=== PATIENT | female | born 1960 | race Hispanic/Latino ===

== ENCOUNTER 2017-03-19 00:55 | Inpatient (IN) | payer OTHER ==
[2017-03-19] MEDS ORDERED: Piperacill/Tazo 4.5gm in NS 4.5 GM/100 ML BAG IVPB STA (01:22)
[2017-03-19] MEDS ORDERED: levoFLOXacin 750 mg in D5W 750 MG/150 ML BAG IVPB STA (01:22)
--- NOTE | 2017-03-19 01:23 | ED PDOC ---
Arrival/HPI - General Chief Complaint: Upper Extremity Problem/Injury Time Seen by Provider: 03/19/17 00:58 Historian: Patient - History of Present Illness Narrative History of Present Illness (Text): 03/19/17 01:21 Micaela Rios is a 57 year old female, whose past medical history includes multiple sclerosis, hypertension, and asthma, who presents to the Emergency department complaining of left shoulder pain. Patient states she has been experiencing left shoulder pain worsened with moving. Patient also reports associated chest pain for the past few hours. Patient also complaining of a persistent cough for the past 2 weeks. Patient states she was seen by her PMD for similar complaint and placed on Levaquin. Patient states she had Tylenol 1 hour prior to arrival. Patient denies any fever, chills, nausea, vomiting, diarrhea, urinary symptoms, neck pain, headache, dizziness, or any other complaints. Symptom Onset: Gradual Symptom Course: Unchanged Activities at Onset: Rest, Light Context: Home Past Medical History - Provider Review Nursing Documentation Reviewed: Yes - Reproductive Menopause: Yes - Cardiac Hx Cardiac Disorders: Yes Hx Hypertension: Yes - Pulmonary Hx Respiratory Disorders: Yes Hx Asthma: Yes - Neurological Hx Neurological Disorder: Yes Hx Multiple Sclerosis: Yes Hx Seizures: Yes - HEENT Hx HEENT Disorder: No - Renal Hx Renal Disorder: No - Endocrine/Metabolic Hx Endocrine Disorders: No - Hematological/Oncological Hx Blood Disorders: No - Integumentary Hx Dermatological Disorder: No - Musculoskeletal/Rheumatological Hx Musculoskeletal Disorders: Yes Hx Arthritis: Yes Hx Back Pain: Yes Hx Osteoarthritis: Yes - Gastrointestinal Hx Gastrointestinal Disorders: No - Genitourinary/Gynecological Hx Genitourinary Disorders: No - Psychiatric Hx Psychophysiologic Disorder: No Hx Substance Use: No - Surgical History Other/Comment: Cervical spine surgery Family/Social History - Physician Review Nursing Documentation Reviewed: Yes Family/Social History: No Known Family HX Smoking Status: Never Smoked Hx Alcohol Use: No Hx Substance Use: No Allergies/Home Meds Allergies/Adverse Reactions: Allergies No Known Allergies Allergy (Verified 03/19/17 01:01) Home Medications: Home Meds Medication Instructions Recorded Confirmed Albuterol Sulfate [Proair Hfa] 2 puff IH BID PRN 03/19/17 03/19/17 Carvedilol [Coreg] 12.5 mg PO BID 03/19/17 03/19/17 Cholecalciferol (Vitamin D3) 50,000 unit PO QWK 03/19/17 03/19/17 [Vitamin D3] Desloratadine [Clarinex] 5 mg PO DAILY 03/19/17 03/19/17 Diltiazem HCl [Diltiazem ER] 240 mg PO HS 03/19/17 03/19/17 Formoterol Fumarate [Foradil 0.012 mg IH BID 03/19/17 03/19/17 Aerolizer] Furosemide [Lasix] 20 mg PO DAILY 03/19/17 03/19/17 Gabapentin [Neurontin] 600 mg PO BID 03/19/17 03/19/17 Hydroxychloroquine Sulfate 200 mg PO BID 03/19/17 03/19/17 [Plaquenil] Lacosamide [Vimpat] 200 mg PO BID 03/19/17 03/19/17 Mometasone Furoate [Asmanex Hfa] 2 puff IH HS 03/19/17 03/19/17 Montelukast [Singulair] 10 mg PO DAILY 03/19/17 03/19/17 Omeprazole 20 mg PO DAILY PRN 03/19/17 03/19/17 Potassium Chloride [Klor-Con 10] 10 meq PO DAILY 03/19/17 03/19/17 Pravastatin Sodium [Pravachol] 20 mg PO DAILY 03/19/17 03/19/17 Valsartan [Diovan] 320 mg PO DAILY 03/19/17 03/19/17 cloNIDine [clonidine HCl] 0.1 mg PO BID 03/19/17 03/19/17 l-Mefol/A-Cyst/Meb12/Algal Oil 1 tab PO DAILY 03/19/17 03/19/17 [Cerefolinnac] Review of Systems - Physician Review All systems were reviewed & negative as marked: Yes - Review of Systems Constitutional: Normal. absent: Fevers Eyes: Normal ENT: Normal Respiratory: Cough. absent: SOB Cardiovascular: Chest Pain Gastrointestinal: Normal. absent: Abdominal Pain, Diarrhea, Nausea, Vomiting Genitourinary Female: Normal. absent: Dysuria, Frequency, Hematuria, Urine Output Changes Musculoskeletal: Arthralgias (+left shoulder pain). absent: Neck Pain Skin: Normal. absent: Rash Neurological: Normal. absent: Headache, Dizziness Endocrine: Normal Hemo/Lymphatic: Normal Psychiatric: Normal Physical Exam Vital Signs Reviewed: Yes Vital Signs Temp Pulse Resp BP Pulse Ox 03/19/17 03:36 103 H 16 136/73 100 03/19/17 03:27 111 H 19 142/67 95 03/19/17 03:15 114 H 19 142/81 95 03/19/17 03:00 114 H 19 142/67 94 L 03/19/17 02:47 111 H 16 148/74 100 03/19/17 02:30 103.5 F H 114 H 18 133/83 97 03/19/17 02:29 103.5 F H 03/19/17 02:20 71 18 180/77 H 99 03/19/17 02:05 72 20 176/78 H 99 03/19/17 01:52 114 H 20 112/94 H 100 03/19/17 01:35 72 16 175/79 H 100 03/19/17 01:30 113 H 20 146/92 H 99 03/19/17 01:29 104.3 F H 03/19/17 01:25 123/88 03/19/17 01:13 104.3 F H 116 H 20 128/111 H 97 Temperature: Febrile Blood Pressure: Normal Pulse: Regular Respiratory Rate: Normal Appearance: Positive for: Well-Appearing, Non-Toxic, Comfortable Pain Distress: None Mental Status: Positive for: Alert and Oriented X 3 - Systems Exam Head: Present: Atraumatic, Normocephalic Pupils: Present: PERRL Extroacular Muscles: Present: EOMI Conjunctiva: Present: Normal Mouth: Present: Moist Mucous Membranes Neck: Present: Normal Range of Motion Respiratory/Chest: Present: Rhonchi. No: Respiratory Distress, Accessory Muscle Use Cardiovascular: Present: Regular Rate and Rhythm, Normal S1, S2. No: Murmurs Abdomen: Present: Normal Bowel Sounds. No: Tenderness, Distention, Peritoneal Signs Upper Extremity: Present: Normal Inspection. No: Cyanosis, Edema Lower Extremity: Present: Normal Inspection. No: Edema Neurological: Present: GCS=15, CN II-XII Intact, Speech Normal Skin: Present: Warm, Dry, Normal Color. No: Rashes Psychiatric: Present: Alert, Oriented x 3, Normal Insight, Normal Concentration Medical Decision Making ED Course and Treatment: 03/19/17 01:21 Impression: 57 year old female complaining of left shoulder pain, chest pain and cough. Plan: -- EKG -- Chest X-ray -- Labs, VBG, blood cultures -- Urinalysis, urine cultures -- Levaquin -- Zosyn -- IV fluids -- Motrin -- Reassess and disposition Prior Visits: Notes and results from previous visits were reviewed. Progress Notes: Reviewed EKG, sinus tachycardia at 115 bpm. Non-specific ST/T wave changes. 03/19/17 02:20 Reviewed radiology, Chest X-ray shows no pneumonia. 03/19/17 03:[address] Post, covering for Dr. Ortiz, who is aware and agrees with plan. Pt will be admitted to Telemetry for chest pain and sepsis. 03/19/17 03:24 Case discussed with curator medical museum database consultant, who is aware and agrees with plan. - Lab Interpretations Microbiology Results: Microbiology Results 03/19/17 01:50 Blood Blood Culture - Preliminary NO GROWTH AFTER 48 HOURS 03/19/17 01:20 Blood Blood Culture - Preliminary NO GROWTH AFTER 48 HOURS 03/19/17 01:20 Urine,Clean Catch Urine Culture - Final No Growth (<1,000 CFU/ML) Lab Results: 03/19/17 01:20 03/19/17 01:20 Lab Results 03/19/17 01:20: Procalcitonin < 0.05 L 03/19/17 01:20: Sodium 140, Chloride 100, Potassium 3.9, Carbon Dioxide 27, Anion Gap 17, BUN 20, Creatinine 0.7, Est GFR ( Amer) > 60, Est GFR (Non- Af Amer) > 60, Random Glucose 96, Calcium 10.5, Phosphorus 2.2 L, Magnesium 1.6 L, Total Bilirubin 0.5, AST 34, ALT 55, Alkaline Phosphatase 156 H, Total Protein 8.0, Albumin 4.7, Globulin 3.3, Albumin/Globulin Ratio 1.4 03/19/17 01:20: pO2 29 L, VBG pH 7.36, VBG pCO2 49.0, VBG HCO3 27.7, VBG Total CO2 29.2 H, VBG O2 Sat (Calc) 59.3, VBG Base Excess 1.5, VBG Potassium 4.1, Sodium 138.0, Chloride 107.0, Glucose 94, Lactate 1.8, FiO2 21.0, Venous Blood Potassium 4.1 03/19/17 01:20: Urine Color Yellow, Urine Appearance Sl cloudy, Urine pH 7.0, Ur Specific [place] 1.015, Urine Protein Trace H, Urine Glucose (UA) Negative, Urine Ketones Negative, Urine Blood Small H, Urine Nitrate Negative, Urine Bilirubin Negative, Urine Urobilinogen 0.2, Ur Leukocyte Esterase Negative, Urine RBC 2 - 5, Urine WBC 0 - 2, Ur Epithelial Cells 0 - 2 03/19/17 01:20: PT 10.5, INR 0.97, APTT 24.3 03/19/17 01:20: WBC 17.1 H, RBC 4.81, Hgb 13.1, Hct 39.0, MCV 81.1, MCH 27.2, MCHC 33.6, RDW 14.6 H, Plt Count 323, MPV 9.4, Gran % 74.6 H, Lymph % (Auto) 15.4 L, [place] % (Auto) 8.5 H, Eos % (Auto) 1.3 L, Baso % (Auto) 0.2, Gran # 12.76 H, Lymph # 2.6, [place] # 1.5 H, Eos # 0.2, Baso # 0.04 I have reviewed the lab results: Yes - RAD Interpretation Radiology Orders: 03/19/17 01:22 CHEST PORTABLE [RAD] Stat - EKG Interpretation Interpreted by ED Physician: Yes Type: 12 lead EKG - Medication Orders Current Medication Orders: Acetaminophen (Tylenol 325mg Tab) 650 mg PO Q4 PRN PRN Reason: Fever >100.4 F Last Admin: 03/21/17 01:05 Dose: 650 mg Re-Assess: MAR Pain/Vitals Document 03/21/17 02:05 MB (Rec: 03/21/17 02:33 [id number]) Pain Reassessment Is This A Pain ReAssessment? Yes Sleep Is patient sleeping during reassessment? Yes Albuterol/Ipratropium (Duoneb 3 Mg/0.5 Mg (3 Ml) Ud) 3 ml IH [id number] [facility] Last Admin: 03/21/17 07:22 Dose: 3 ml Albuterol/Ipratropium (Duoneb 3 Mg/0.5 Mg (3 Ml) Ud) 3 ml IH Q2H PRN PRN Reason: Shortness of Breath Last Admin: 03/20/17 23:30 Dose: 3 ml Aspirin (Aspirin Chewable) 81 mg PO DAILY [facility] Last Admin: 03/20/17 10:31 Dose: 81 mg Atorvastatin Calcium (Lipitor) 20 mg PO DIN [facility] Last Admin: 03/20/17 17:35 Dose: 20 mg Budesonide (Pulmicort Respules) 0.5 mg IH [id number] [facility] Last Admin: 03/21/17 07:22 Dose: 0.5 mg Carvedilol (Coreg) 12.5 mg PO BID [facility] Clonidine HCl (Catapres) 0.3 mg PO BID [facility] Last Admin: 03/19/17 12:26 Dose: Doxycycline Hyclate (Doryx) 100 mg PO Q12 [facility] PRN Reason: Protocol Last Admin: 03/20/17 21:47 Dose: 100 mg Ergocalciferol (Drisdol 50,000 Intl Units Cap) 1 cap PO Q7D [facility] Last Admin: 03/19/17 11:31 Dose: 1 cap Famotidine (Pepcid) 40 mg PO HS [facility] Last Admin: 03/20/17 21:47 Dose: 40 mg Furosemide (Lasix) 20 mg PO DAILY [facility] Last Admin: 03/19/17 11:53 Dose: Gabapentin (Neurontin) 600 mg PO BID [facility] PRN Reason: Protocol Last Admin: 03/20/17 17:34 Dose: 600 mg Re-Assess: Reassess Psych Meds Document 03/20/17 18:34 MB (Rec: 03/20/17 19:42 MB [id number]) Reassess Psych Med Effective Guaifenesin (Robitussin) 100 mg PO Q4H PRN PRN Reason: Cough Last Admin: 03/19/17 23:42 Dose: 100 mg Heparin Sodium (Porcine) (Heparin) 5,000 units SC Q12 [facility] PRN Reason: Protocol Last Admin: 03/20/17 21:47 Dose: 5,000 units Hydroxychloroquine Sulfate (Plaquenil) 200 mg PO BID [facility] Last Admin: 03/20/17 17:34 Dose: 200 mg Piperacillin Sod/Tazobactam Sod (Zosyn 3.375 In Ns 100ml) 100 mls @ 200 mls/hr IVPB 0900,1500,2100,0300 [facility] PRN Reason: Protocol Stop: 03/26/17 15:01 Last Admin: 03/21/17 05:42 Dose: Not Given Non-Admin Reason: Patient Refused Methylprednisolone (Solu-Medrol) 30 mg IVP Q12 [facility] Last Admin: 03/20/17 21:45 Dose: 30 mg Montelukast Sodium (Singulair) 10 mg PO DAILY [facility] Last Admin: 03/20/17 10:31 Dose: 10 mg Morphine Sulfate (Morphine) 2 mg IVP Q4H PRN PRN Reason: Pain, moderate (4-7) Lacosamide [Vimpat] (200 Mg) 200 mg PO BID [facility] Last Admin: 03/20/17 17:33 Dose: 200 mg Ondansetron HCl (Zofran Inj) 4 mg IVP Q4H PRN PRN Reason: Nausea/Vomiting Valsartan (Diovan) 320 mg PO DAILY [facility] Last Admin: 03/19/17 12:27 Dose: Not Given Non-Admin Reason: Patient Lethargic Discontinued Medications Barium Sulfate (Readi-Cat 2) Confirm Administered Dose 900 ml PO .STK-MED ONE Stop: 03/19/17 13:12 Hydromorphone HCl (Dilaudid) 1 mg IVP STAT STA Stop: 03/19/17 03:44 Last Admin: 03/19/17 03:52 Dose: Not Given Non-Admin Reason: Patient Asleep Levofloxacin/Dextrose (Levaquin 750mg) 750 mg in 150 mls @ 100 mls/hr IVPB STAT STA Stop: 03/19/17 02:51 Last Admin: 03/19/17 02:04 Dose: 100 mls/hr Sodium Chloride (Sodium Chloride 0.9%) 1,000 mls @ 80 mls/hr IV .[id number] [facility] Last Admin: 03/19/17 01:34 Dose: 80 mls/hr Piperacillin Sod/Tazobactam Sod (Zosyn 4.5 Gm In Ns 100ml) 4.5 gm in 100 mls @ 200 mls/hr IVPB STAT [facility] PRN Reason: Protocol Stop: 03/19/17 01:51 Last Admin: 03/19/17 01:42 Dose: 200 mls/hr Magnesium Sulfate/Dextrose (Magnesium Sulfate 1 Gm/100 Ml D5w) 1 gm in 100 mls @ 100 mls/hr IVPB ONCE ONE Stop: 03/19/17 05:52 Last Admin: 03/19/17 05:14 Dose: 100 mls/hr Meropenem 500 mg/ Sodium (Chloride) 100 mls @ 100 mls/hr IVPB Q24H [facility] PRN Reason: Protocol Stop: 03/19/17 05:59 Last Admin: 03/19/17 06:04 Dose: 100 mls/hr Vancomycin HCl (Vancomycin 1gm) 1 gm in 250 mls @ 167 mls/hr IVPB DAILY [facility] PRN Reason: Protocol Sodium Chloride (Sodium Chloride 0.9%) 1,000 mls @ 100 mls/hr IV .Q10H [facility] Last Admin: 03/20/17 01:03 Dose: 100 mls/hr Comments: margaret mena-scanner not working Piperacillin Sod/Tazobactam Sod (Zosyn 3.375 In Ns 100ml) 100 mls @ 200 mls/hr IVPB Q6 [facility] PRN Reason: Protocol Stop: 03/26/17 12:01 Piperacillin Sod/Tazobactam Sod (Zosyn 3.375 In Ns 100ml) 100 mls @ 200 mls/hr IVPB STAT [facility] PRN Reason: Protocol Stop: 03/19/17 09:04 Last Admin: 03/19/17 08:58 Dose: 200 mls/hr Sodium Chloride (Sodium Chloride 0.9%) 1,000 mls @ 999 mls/hr IV .Q1H1M ST[facility] Stop: 03/19/17 10:49 Last Admin: 03/19/17 09:45 Dose: 999 mls/hr Sodium Chloride (Sodium Chloride 0.9%) 1,000 mls @ 999 mls/hr IV .Q1H1M [facility] Stop: 03/19/17 11:16 Last Admin: 03/19/17 19:59 Dose: Sodium Chloride (Sodium Chloride 0.9%) 1,000 mls @ 999 mls/hr IV .Q1H1M [facility] Stop: 03/19/17 12:18 Last Admin: 03/19/17 11:55 Dose: 999 mls/hr Ibuprofen (Motrin Tab) 400 mg PO ONCE [facility] Stop: 03/19/17 01:25 Last Admin: 03/19/17 01:29 Dose: 400 mg Re-Assess: MAR Pain/Vitals Document 03/19/17 02:29 MMA (Rec: 03/19/17 03:42 [facility] [id number]) Vitals Temperature (97.6 F-99.6 F) 103.5 F Temperature Source Rectal Ibuprofen (Motrin Tab) Confirm Administered Dose 400 mg PO .STK-MED ONE Stop: 03/19/17 01:29 Last Admin: 03/19/17 01:29 Dose: Methylprednisolone (Solu-Medrol) 40 mg IVP Q8 [facility] Last Admin: 03/19/17 08:59 Dose: 40 mg Morphine Sulfate (Morphine) 1 mg IVP STAT ST[facility] Stop: 03/19/17 02:50 Last Admin: 03/19/17 03:40 Dose: 1 mg Non-Formulary Medication (Lacosamide [Vimpat]) 200 mg PO BID [facility] Last Admin: 03/19/17 11:53 Dose: Potassium Phos/Sodium Phos (Neutra-Phos) 1 pkt PO ONCE ONE Stop: 03/19/17 04:54 Last Admin: 03/19/17 05:14 Dose: 1 pkt - Scribe Statement The provider has reviewed the documentation as recorded by the Scribdorene Damian All medical record entries made by the Leeibdorene were at my direction and personally dictated by me. I have reviewed the chart and agree that the record accurately reflects my personal performance of the history, physical exam, medical decision making, and the department course for this patient. I have also personally directed, reviewed, and agree with the discharge instructions and disposition. Disposition/Present on Arrival - Present on Arrival Any Indicators Present on Arrival: No History of DVT/PE: No History of Uncontrolled Diabetes: No Urinary Catheter: No History of Decub. Ulcer: No History Surgical Site Infection Following: None - Disposition Have Diagnosis and Disposition been Completed?: Yes Diagnosis: Pneumonia Disposition: HOSPITALIZED Disposition Time: 03:25 Condition: GOOD
[2017-03-19] MEDS ORDERED: Sodium Chloride 0.9% 1,000 ML IV SCH (01:30)
[2017-03-19 02:06] LABS: ADD MANUAL DIFF? NO
[2017-03-19 02:17] LABS: URINE BILIRUBIN NEGATIVE (NEGATIVE); URINE BLOOD SMALL (NEGATIVE); URINE GLUCOSE (UA) NEGATIVE (NEGATIVE); URINE KETONE NEGATIVE (NEGATIVE); URINE LEUKOCYTE ESTERASE NEGATIVE Leu/uL (NEGATIVE); URINE PROTEIN TRACE mg/dL (<30 mg/dL); URINE UROBILINOGEN 0.2 E.U./dL (<1 E.U./dL)
[2017-03-19 02:18] LABS: BASO # 0.04 K/mm3 (0.0-2.0); BASO % 0.2 % (0.0-3.0); EOS # 0.2 (0.0-0.7); EOS % 1.3 % (1.5-5.0); GRAN # 12.76 (1.4-6.5); GRAN % 74.6 % (50.0-68.0); LYMPH # 2.6 (1.2-3.4); LYMPH % 15.4 % (22.0-35.0); MEAN CELL VOLUME 81.1 fL (80.0-105.0); MEAN CORPUSCULAR HEMOGLOBIN 27.2 pg (25.0-35.0); MEAN CORPUSCULAR HGB CONC 33.6 g/dl (31.0-37.0); MEAN PLATELET VOLUME 9.4 fl (7.0-11.0); MONO # 1.5 (0.1-0.6); MONO % 8.5 % (1.0-6.0); PLATELET COUNT 323 10^3/uL (120.0-450.0); RED CELL DISTRIBUTION WIDTH 14.6 % (11.5-14.5); WHITE BLOOD COUNT 17.1 10^3/ul (4.5-11.0)
[2017-03-19 02:23] LABS: INR 0.97 (0.93-1.08); PARTIAL THROMBOPLASTIN TIME 24.3 Seconds (23.7-30.8)
[2017-03-19 02:24] LABS: URINE APPEARANCE SL CLOUDY (CLEAR); URINE COLOR YELLOW (YELLOW); VENOUS BLOOD GAS BASE EXCESS 1.5 mmol/L (0.0-2.0); VENOUS BLOOD PH 7.36 (7.32-7.43)
[2017-03-19 02:28] LABS: URINE EPITHELIAL CELLS 0 - 2 /hpf (0-5); URINE WBC 0 - 2 /hpf (0-6)
[2017-03-19 02:48] LABS: ALB/GLOB RATIO 1.4 (1.1-1.8); ALKALINE PHOSPHATASE 156 U/L (38-133); ALT/SGPT 55 U/L (7-56); AST/SGOT 34 U/L (15-39); BILIRUBIN,TOTAL 0.5 mg/dL (0.2-1.3); BLOOD UREA NITROGEN 20 mg/dL (7-21); CALCIUM 10.5 mg/dL (8.4-10.5); CARBON DIOXIDE 27 mmol/L (21-33); CHLORIDE 100 mmol/L (95-110); GFR AFRICAN-AMERICAN > 60; GLUCOSE,RANDOM 96 mg/dL (70-110); MAGNESIUM 1.6 mg/dL (1.7-2.2); PHOSPHOROUS 2.2 mg/dL (2.5-4.5); POTASSIUM 3.9 mmol/L (3.6-5.0); SODIUM 140 mmol/L (132-148)
[2017-03-19] MEDS ORDERED: Morphine 2 mg/ml ISec IVP STA (02:49)
[2017-03-19] MEDS ORDERED: HYDROmorphone 1 mg/ml ISec IVP STA (03:43)
[2017-03-19] MEDS ORDERED: Morphine 2 mg/ml ISec IVP PRN (03:55)
--- NOTE | 2017-03-19 04:24 | CP.PCM.HP ---
<YuridevonedieDavin carlson - Last Filed: 03/19/17 05:03> History of Present Illness - History of Present Illness History of Present Illness: 57 y/o F with PMH of MS, HTN, HLD, and Asthma presents to the ED for a 1 day hx of chest pain. Pt states chest pain began this morning while she was at home. In addition to chest pain, she complains of concurrent left shoulder pain and mid back pain that started at the same time. Pt describes the chest pain as a pressure and rates it an 8/10. Pain has been constant since this morning. Pain is nonradiating. Pt states that left shoulder pain is not radiating from chest, but rather a separate pain on it's own. Pt states she took tylenol at home before coming to hospital. Pt denies any recent trauma or falls. Pt also mentions a persistent cough that she has had for the past several months. Over the last 2 weeks, pt states cough has become worse. Pt states cough is productive and is bringing up light/clear colored phlegm. Pt saw her PMD recently and was placed on levaquin, which did not help symptoms. Pt also mentions intermittent tingling and numbness in right arm. Pt states she believes it is her MS advancing as she had a brain MRI in 07/2016, which shows new demyelinating lesions. Pt has had these symptoms for several weeks and has not had any MS infusion treatment in over 1 month. Denies SOB, Nausea, vomiting , fevers, chills, sick contacts, syncope, visual changes, weakness, or new onset numbness/tingling. Admits to having several episodes of nonbloody diarrhea last week. PMH: MS, HTN, HLD, Asthma Surgical Hx: Unremarkable Family Hx: Maternal - DM Social Hx: Denies tobacco, alcohol, or illicit drug use Allergies: NKDA Medication: See MAR Present on Admission - Present on Admission Any Indicators Present on Admission: No Review of Systems - Constitutional Constitutional: Fatigue. absent: Chills - EENT Eyes: absent: Blurred Vision, Change in Vision, Diplopia - Cardiovascular Cardiovascular: Chest Pain. absent: Irregular Heart Rhythm - Respiratory Respiratory: Cough. absent: Dyspnea - Gastrointestinal Gastrointestinal: absent: Abdominal Pain, Diarrhea, Vomiting - Genitourinary Genitourinary: absent: Difficulty Urinating, Dysuria, Hematuria - Integumentary Integumentary: absent: New Lesions, Rash - Neurological Neurological: Numbness, Tingling. absent: Syncope - Hematologic/Lymphatic Hematologic: absent: Easy Bleeding, Easy Bruising Past Patient History - Past Social History Smoking Status: Never Smoked - CARDIAC Hx Cardiac Disorders: Yes Hx Hypertension: Yes - PULMONARY Hx Respiratory Disorders: Yes Hx Asthma: Yes - NEUROLOGICAL Hx Neurological Disorder: Yes Hx Multiple Sclerosis: Yes Hx Seizures: Yes - HEENT Hx HEENT Problems: No - RENAL Hx Chronic Kidney Disease: No - ENDOCRINE/METABOLIC Hx Endocrine Disorders: No - HEMATOLOGICAL/ONCOLOGICAL Hx Blood Disorders: No - INTEGUMENTARY Hx Dermatological Problems: No - MUSCULOSKELETAL/RHEUMATOLOGICAL Hx Musculoskeletal Disorders: Yes Hx Arthritis: Yes Hx Back Pain: Yes Hx Osteoarthritis: Yes - GASTROINTESTINAL Hx Gastrointestinal Disorders: No - GENITOURINARY/GYNECOLOGICAL Hx Genitourinary Disorders: No - PSYCHIATRIC Hx Psychophysiologic Disorder: No Hx Substance Use: No - SURGICAL HISTORY Other/Comment: Cervical spine surgery Meds Allergies/Adverse Reactions: Allergies Allergy/AdvReac Type Severity Reaction Status Date / Time No Known Allergies Allergy Verified 03/19/17 01:01 Physical Exam - Constitutional Appears: Non-toxic, No Acute Distress - Head Exam Head Exam: ATRAUMATIC, NORMAL INSPECTION, NORMOCEPHALIC - Eye Exam Eye Exam: EOMI, Normal appearance - ENT Exam ENT Exam: Mucous Membranes Moist, Normal Exam - Neck Exam Neck exam: Positive for: Normal Inspection. Negative for: Lymphadenopathy - Respiratory Exam Respiratory Exam: Clear to Auscultation Bilateral, Rhonchi (Lower left lobe), NORMAL BREATHING PATTERN. absent: Rales - Cardiovascular Exam Cardiovascular Exam: RRR, +S1, +S2 - GI/Abdominal Exam GI & Abdominal Exam: Normal Bowel Sounds, Soft. absent: Tenderness - Extremities Exam Extremities exam: Negative for: calf tenderness, pedal edema Additional comments: Left shoulder tender to palpation, no erythema or edema. - Back Exam Back exam: paraspinal tenderness, vertebral tenderness Additional comments: Tenderness to palpation along thoracic vertebrae and musculature. No erythema or edema. - Neurological Exam Neurological exam: Alert, CN II-XII Intact, Oriented x3 - Psychiatric Exam Psychiatric exam: Normal Affect, Normal Mood - Skin Skin Exam: Intact, Normal Color, Warm Results - Vital Signs Recent Vital Signs: Last Vital Signs Temp 103.5 F H 05/15/17 02:30 Pulse 103 H 03/19/17 03:36 Resp 16 03/19/17 03:36 BP 136/73 03/19/17 03:36 Pulse Ox 100 03/19/17 03:36 - Labs Result Diagrams: 03/19/17 01:20 03/19/17 01:20 Assessment & Plan - Assessment and Plan (Free Text) Plan: 57 y/o F with PMH of MS, HTN, HLD, and Asthma presents with Chest pain r/o ACS in the setting of SIRS with unclear setting of infection. Pt will be admitted to telemetry and have troponins trended. Cardiology consult, Dr. Sherman, will be placed. Pt arrived to ED with elevated temperature and WBC count. Chest x-ray appears clear, awaiting official read. Pt was empirically given Zosyn and Levaquin, along with Motrin in the ED. Will start patient on Vancomycin and Merrem and ID will be consulted, Dr. Abernathy. Pt will be admitted to telemetry for further management. 1. Chest pain Trend troponins Echocardiogram ASA 81 mg daily Morphine 2 q4h prn Consult cardiology 2. SIRS Unclear source of infection Procal pending NS @ 100 Merrem and Vancomycin Follow blood and urine cultures Consult ID 3. Multiple Sclerosis Continue home medication Monitor for worsening numbness/tingling sensations Monitor for worsening visual changes 4. HTN Continue home medication Monitor BP closely 5. Asthma Continue home medication Monitor for worsening respiratory status 6. PPX Heparin Pepcid Marry [place], PGY-1 <Jeff Ortiz - Last Filed: 04/11/17 13:53> Results - Vital Signs Recent Vital Signs: Last Vital Signs Temp 98.3 F 03/22/17 16:00 Pulse 73 03/22/17 16:00 Resp 20 03/22/17 16:00 BP 122/74 03/22/17 16:00 Pulse Ox 96 03/22/17 16:00 - Labs Result Diagrams: 03/22/17 07:00 03/22/17 07:00 Attending/Attestation - Attestation I have personally seen and examined this patient.: Yes I have fully participated in the care of the patient.: Yes I have reviewed all pertinent clinical information: Yes Notes (Text): 04/11/17 13:53 Resident note done after seen and examined by me with discussion. The note is a representation of my history, physical and plan for patient.
[2017-03-19] MEDS ORDERED: Albuterol 0.083% Inhal Sol (2.5 mg/3 mL) UD IH PRN (04:51)
[2017-03-19] MEDS ORDERED: Potassium & Sodium Phosphate PO ONE (04:53)
[2017-03-19] MEDS ORDERED: Magnesium Sulfate 1 gm in D5W 1 GM/100 ML BAG IVPB ONE (04:53)
[2017-03-19] MEDS ORDERED: Meropenem 500 MG in Sodium Chloride 0.9% 100 ML IVPB SCH (05:00)
[2017-03-19 05:41] VITALS: BMI 27.8
[2017-03-19] MEDS: Sodium Chloride 0.9% 1,000 ML IV SCH ×3 (06:04→19:45)
[2017-03-19 07:17] LABS: HEMATOCRIT 31.6 % (36.0-48.0); MEAN CELL VOLUME 80.8 fL (80.0-105.0); MEAN CORPUSCULAR HEMOGLOBIN 26.9 pg (25.0-35.0); MEAN CORPUSCULAR HGB CONC 33.2 g/dl (31.0-37.0); MEAN PLATELET VOLUME 9.2 fl (7.0-11.0); PLATELET COUNT 264 10^3/uL (120.0-450.0); RED CELL DISTRIBUTION WIDTH 14.7 % (11.5-14.5)
--- NOTE | 2017-03-19 07:22 | RAD ---
HISTORY: Sepsis Patient COMPARISON: None available. TECHNIQUE: Chest, one view. FINDINGS: Examination limited by habitus. LUNGS: Mild interstitial prominence may reflect infection or edema. No focal consolidation. Please note that chest x-ray has limited sensitivity for the detection of pulmonary masses. PLEURA: No significant pleural effusion identified. No definite pneumothorax . CARDIOVASCULAR: Cardiomegaly. OSSEOUS STRUCTURES: Cervical fusion hardware. VISUALIZED UPPER ABDOMEN: Unremarkable. OTHER FINDINGS: None. IMPRESSION: Mild interstitial prominence may reflect infection or edema. Cardiomegaly.
[2017-03-19 07:44] LABS: ADD MANUAL DIFF? NO; BASO # 0.05 K/mm3 (0.0-2.0); BASO % 0.2 % (0.0-3.0); EOS # 0.1 (0.0-0.7); EOS % 0.4 % (1.5-5.0); GRAN # 21.05 (1.4-6.5); GRAN % 81.2 % (50.0-68.0); LYMPH # 1.9 (1.2-3.4); LYMPH % 7.5 % (22.0-35.0); MONO # 2.8 (0.1-0.6); MONO % 10.7 % (1.0-6.0)
[2017-03-19 07:46] LABS: PHOSPHOROUS 2.6 mg/dL (2.5-4.5)
[2017-03-19 07:46] LABS: ALB/GLOB RATIO 1.3 (1.1-1.8); ALKALINE PHOSPHATASE 132 U/L (38-133); ALT/SGPT 148 U/L (7-56); AST/SGOT 156 U/L (15-39); BILIRUBIN,TOTAL 0.7 mg/dL (0.2-1.3); BLOOD UREA NITROGEN 20 mg/dL (7-21); CALCIUM 9.5 mg/dL (8.4-10.5); CARBON DIOXIDE 23 mmol/L (21-33); CHLORIDE 102 mmol/L (98-107); GFR AFRICAN-AMERICAN > 60; GLUCOSE,RANDOM 133 mg/dL (70-110); POTASSIUM 3.8 mmol/L (3.6-5.0); SODIUM 135 mmol/L (132-148); TOTAL PROTEIN 6.1 g/dL (5.8-8.3)
[2017-03-19 08:06] LABS: WHITE BLOOD COUNT 25.4 10^3/ul (4.5-11.0)
[2017-03-19] MEDS ORDERED: Piperacillin/Tazobact 3.375 gm 100 ML IVPB STA (08:35)
[2017-03-19] MEDS ORDERED: MethylPREDNISolone 40 mg Vial IVP SCH ×2 (08:45→10:00)
--- NOTE | 2017-03-19 09:40 | CP.PCM.CON ---
<Peña Toussaint - Last Filed: 03/19/17 09:10> History of Present Illness - History of Present Illness History of Present Illness: Neurology Consult Note - Dr. Moore Service This is a 57 y/o female with hx of MS, HTN, HLD, asthma presenting with complaints chest pain and left shoulder pain which started 1 days ago. Patient also mentions a persistent productive cough, subjective fever and chills as well as headaches. The patient also notes parasthesias to the right distal arm and medial digits. She denies any urinary complaints, abdominal pain, n/v/d or neck stiffness. Patient and her daughter note a brief period of confusion and possible mental status changes on initial hospital presentation. Patient is now at baseline according to her daughter. The patient has been treated with Tysabril however this was held 2 months ago secondary to elevated SUSHILA virus titers. MRI brain done in July, reveals progression of [employer] lesions. On admission patient is found to febrile with a temperature of 102.6. She remains febrile this morning. Leukocytosis is also noted. PMH: as above PSH: surgery to cervical spine - patient is unsure of specific procedure or level. Family hx: mother with DM Social hx: denies tobacco, alcohol or illicit drug use Allergies: NKDA Review of Systems - Constitutional Constitutional: Chills, Fever, Headache, Lethargy, Malaise - EENT Eyes: absent: Blurred Vision, Change in Vision, Diplopia, Photophobia Nose/Mouth/Throat: absent: Nasal Congestion, Nasal Discharge - Cardiovascular Cardiovascular: Chest Pain. absent: Chest Pain with Activity, Dyspnea, Palpitations, Syncope - Respiratory Respiratory: Cough, Pain on Inspiration, Chest Congestion. absent: Dyspnea, Wheezing - Gastrointestinal Gastrointestinal: absent: Abdominal Pain, Diarrhea, Nausea, Vomiting - Genitourinary Genitourinary: absent: Dysuria, Hematuria - Musculoskeletal Musculoskeletal: Arthralgias, Numbness. absent: Back Pain, Muscle Weakness, Neck Pain - Integumentary Integumentary: absent: Lesions, Pruritus - Neurological Neurological: Numbness, Headaches, Paresthesias, Weakness. absent: Abnormal Movements, Abnormal Speech, Confusion, Convulsions, Dizziness, Focal Weakness, Memory Loss - Psychiatric Psychiatric: absent: Anxiety, Depression Past Patient History - Past Social History Smoking Status: Never Smoked - CARDIAC Hx Cardiac Disorders: Yes Hx Hypertension: Yes - PULMONARY Hx Respiratory Disorders: Yes Hx Asthma: Yes - NEUROLOGICAL Hx Neurological Disorder: Yes Hx Multiple Sclerosis: Yes Hx Seizures: Yes - HEENT Hx HEENT Problems: No - RENAL Hx Chronic Kidney Disease: No - ENDOCRINE/METABOLIC Hx Endocrine Disorders: No - HEMATOLOGICAL/ONCOLOGICAL Hx Blood Disorders: No - INTEGUMENTARY Hx Dermatological Problems: No - MUSCULOSKELETAL/RHEUMATOLOGICAL Hx Musculoskeletal Disorders: Yes Hx Arthritis: Yes Hx Back Pain: Yes Hx Osteoarthritis: Yes - GASTROINTESTINAL Hx Gastrointestinal Disorders: No - GENITOURINARY/GYNECOLOGICAL Hx Genitourinary Disorders: No - PSYCHIATRIC Hx Psychophysiologic Disorder: No Hx Substance Use: No - SURGICAL HISTORY Other/Comment: Cervical spine surgery Meds Allergies/Adverse Reactions: Allergies Allergy/AdvReac Type Severity Reaction Status Date / Time No Known Allergies Allergy Verified 03/19/17 01:01 - Medications Medications: Current Medications Acetaminophen (Tylenol 325mg Tab) 650 mg PO Q4 PRN PRN Reason: Fever >100.4 F Last Admin: 03/19/17 04:29 Dose: 650 mg Albuterol Sulfate (Albuterol 0.083% Inhal Natalya (2.5 Mg/3 Ml) Ud) 2.5 mg IH BIDRESP PRN PRN Reason: Shortness of Breath Aspirin (Aspirin Chewable) 81 mg PO DAILY [facility] Atorvastatin Calcium (Lipitor) 20 mg PO DIN [facility] Carvedilol (Coreg) 12.5 mg PO BID [facility] Clonidine HCl (Catapres) 0.3 mg PO BID [facility] Diltiazem HCl (Cardizem Cd) 240 mg PO HS [facility] Ergocalciferol (Drisdol 50,000 Intl Units Cap) 1 cap PO Q7D [facility] Famotidine (Pepcid) 40 mg PO HS [facility] Furosemide (Lasix) 20 mg PO DAILY [facility] Gabapentin (Neurontin) 600 mg PO BID [facility] PRN Reason: Protocol Heparin Sodium (Porcine) (Heparin) 5,000 units SC Q12 [facility] PRN Reason: Protocol Hydroxychloroquine Sulfate (Plaquenil) 200 mg PO BID [facility] Sodium Chloride (Sodium Chloride 0.9%) 1,000 mls @ 100 mls/hr IV .Q10H [facility] Last Admin: 03/19/17 06:04 Dose: 100 mls/hr Piperacillin Sod/Tazobactam Sod (Zosyn 3.375 In Ns 100ml) 100 mls @ 200 mls/hr IVPB Q6 [facility] PRN Reason: Protocol Stop: 03/26/17 12:01 Methylprednisolone (Solu-Medrol) 40 mg IVP Q8 [facility] Last Admin: 03/19/17 08:59 Dose: 40 mg Montelukast Sodium (Singulair) 10 mg PO DAILY [facility] Morphine Sulfate (Morphine) 2 mg IVP Q4H PRN PRN Reason: Pain, moderate (4-7) Non-Formulary Medication (Lacosamide [Vimpat]) 200 mg PO BID [facility] Ondansetron HCl (Zofran Inj) 4 mg IVP Q4H PRN PRN Reason: Nausea/Vomiting Potassium Chloride (Klor-Con 10) 10 meq PO DAILY [facility] Valsartan (Diovan) 320 mg PO DAILY [facility] Physical Exam - Constitutional Appears: Non-toxic, No Acute Distress - Head Exam Head Exam: ATRAUMATIC, NORMOCEPHALIC - Eye Exam Eye Exam: EOMI, PERRL - ENT Exam ENT Exam: Mucous Membranes Moist - Neck Exam Neck exam: Positive for: Full Rom, Normal Inspection. Negative for: Lymphadenopathy, Meningismus - Respiratory Exam Respiratory Exam: Clear to Auscultation Bilateral. absent: Rales, Rhonchi, Wheezes - Cardiovascular Exam Cardiovascular Exam: REGULAR RHYTHM, +S1, +S2 - GI/Abdominal Exam GI & Abdominal Exam: Normal Bowel Sounds, Soft. absent: Tenderness - Extremities Exam Extremities exam: Positive for: pedal pulses present. Negative for: calf tenderness, pedal edema, tenderness - Back Exam Back exam: FULL ROM, NORMAL INSPECTION. absent: tenderness - Neurological Exam Neurological exam: Alert, CN II-XII Intact, Oriented x3 Additional comments: no focal deficits. 4/5 muscle strength to all extremities. sensation intact b/ l. - Psychiatric Exam Psychiatric exam: Normal Affect, Normal Mood - Skin Skin Exam: Normal Color, Warm Results - Vital Signs Recent Vital Signs: Last Vital Signs Temp 102.4 F H 03/19/17 06:30 Pulse 102 H 03/19/17 04:32 Resp 20 03/19/17 04:32 BP 147/80 03/19/17 04:32 Pulse Ox 100 03/19/17 03:36 - Labs Result Diagrams: 03/19/17 06:40 03/19/17 06:40 Labs: Laboratory Results - last 24 hr 03/19/17 03/19/17 03/19/17 03:35 06:30 06:40 WBC 25.4 H* D RBC 3.91 Hgb 10.5 L Hct 31.6 L MCV 80.8 MCH 26.9 MCHC 33.2 RDW 14.7 H Plt Count 264 MPV 9.2 Gran % 81.2 H Lymph % (Auto) 7.5 L [place] % (Auto) 10.7 H Eos % (Auto) 0.4 L Baso % (Auto) 0.2 Gran # 21.05 H Lymph # 1.9 [place] # 2.8 H Eos # 0.1 Baso # 0.05 Sodium Potassium Chloride Carbon Dioxide Anion Gap BUN Creatinine Est GFR ( Amer) Est GFR (Non-Af Amer) Random Glucose Lactic Acid Calcium Phosphorus Magnesium Total Bilirubin AST ALT Alkaline Phosphatase Troponin I < 0.01 Total Protein Albumin Globulin Albumin/Globulin Ratio Influenza Typ A,B (EIA) Negative for flu a/b 03/19/17 03/19/17 03/19/17 06:40 07:10 07:10 WBC RBC Hgb Hct MCV MCH MCHC RDW Plt Count MPV Gran % Lymph % (Auto) [place] % (Auto) Eos % (Auto) Baso % (Auto) Gran # Lymph # [place] # Eos # Baso # Sodium 135 Potassium 3.8 Chloride 102 Carbon Dioxide 23 Anion Gap 14 BUN 20 Creatinine 1.0 Est GFR ( Amer) > 60 Est GFR (Non-Af Amer) 57 Random Glucose 133 H Lactic Acid 1.9 Calcium 9.5 Phosphorus 2.6 Magnesium 2.0 Total Bilirubin 0.7 AST 156 H ALT 148 H Alkaline Phosphatase 132 Troponin I Total Protein 6.1 Albumin 3.5 Globulin 2.6 Albumin/Globulin Ratio 1.3 Influenza Typ A,B (EIA) Assessment & Plan - Assessment and Plan (Free Text) Assessment: 57 y/o female with hx MS, HTN, HLD, asthma presenting a fever and leukocytosis in the setting of mutliple complaints including chest pain, cough and parasthesias. Chest xray is relatively unremarkable. There is no evidence of UTI. Patient is not experiencing diarrhea or abdominal discomfort. At this point , the source of patient's leukocytosis and fever is undetermined. Given patient' s history of immunosuppressive therapy she is at risk for significant [employer] infection. At present the patient does not exhibit any overt signs of meningitis. However if a source is not identified a spinal tap to r/o [employer] infection is warranted. Patients complaints of chest pain, shoulder pain and upper extremity parasthesias may be due to an acute MS flare. MS flare can also be responsible for the fever as well. - LP if source of fever, leukocytosis is not identified - patient started on steroid taper for likely MS flare - f/u blood, urine cx - abx per medical team - will d/w attending <Juan Alberto Moore - Last Filed: 05/16/17 11:59> Results - Vital Signs Recent Vital Signs: Last Vital Signs Temp 98.3 F 03/22/17 16:00 Pulse 73 03/22/17 16:00 Resp 20 03/22/17 16:00 BP 122/74 03/22/17 16:00 Pulse Ox 96 03/22/17 16:00 - Labs Result Diagrams: 03/22/17 07:00 03/22/17 07:00 Attending/Attestation - Attestation I have personally seen and examined this patient.: Yes I have fully participated in the care of the patient.: Yes I have reviewed all pertinent clinical information: Yes
[2017-03-19] MEDS ORDERED: Sodium Chloride 0.9% 1,000 ML IV STA ×2 (09:49→11:18)
[2017-03-19] MEDS ORDERED: Ergocalciferol 50,000 Intl Units Cap PO SCH (10:00)
[2017-03-19] MEDS ORDERED: Vancomycin 1gm in NS 250ml 1 GM/250 ML BAG IVPB SCH (10:00)
[2017-03-19] MEDS ORDERED: Potassium Chloride 10 mEq ER Tab PO SCH (10:00)
[2017-03-19] MEDS ORDERED: LACOSAMIDE 200 MG PO SCH ×2 (10:00)
--- NOTE | 2017-03-19 10:51 | CON ---
DATE: 03/19/2017 REASON FOR CONSULTATION: Asthma. REFERRING PHYSICIAN: Dr. Jeff Ortiz History is obtained via extensive discussion with the patient and daughter. I have also reviewed the chart at length. The patient is a 57-year-old female with past medical history significant for advanced multiple sclerosis, asthma, hypertension, hyperlipidemia, who presented to [facility] with main complaint of chest pain for 1 day. In addition, the patient also states to cough with yellowish sputum production for the past 7 days. The patient denies shortness of breath at rest or dyspnea on exertion. As above, the patient did present with chest pain. The patient's chest pain is significantly decreased/resolved this morning. There is no history of coughing up of blood. The patient did present to [facility] with high fevers. No history of chills or infectious exposure. No history of night sweats, weight loss or appetite change prior to the above events. No history of calf pains. No history of syncope or diaphoresis. No history of recent travel or trauma. REVIEW OF SYSTEMS: No history of nausea, vomiting or diarrhea. No acute urinary symptoms. The rest of the review of systems is negative. ALLERGIES: No known allergies. SOCIAL HISTORY: Positive for remote tobacco usage. No alcohol. FAMILY HISTORY: No inheritable diseases. HOME MEDICATIONS: Include Plaquenil, Asmanex, ProAir, Foradil, Clarinex, clonidine, Pravachol, Singulair, Coreg, diltiazem, Diovan, Neurontin, Vimpat. PHYSICAL EXAMINATION: GENERAL: The patient appears comfortable this morning. She is not short of breath at rest. VITAL SIGNS: Temperature is 102.4, pulse on the monitor is 94, respiratory rate 18, blood pressure 147/80. Oxygen saturation on nasal cannula is 100%. HEENT: Normocephalic, atraumatic. No JVD. CARDIOVASCULAR: Positive S1, S2. No S3. LUNGS: Minimal crackles at both bases. Minimal bilateral rhonchi. No wheezing. EXTREMITIES: No clubbing, cyanosis, or edema. Calves are nontender to palpation. GASTROINTESTINAL: Abdomen is soft, nontender, nondistended. Bowel sounds are positive. SKIN: No acute rash. NEUROLOGIC: Limited at the present time. PERTINENT LABORATORY DATA: Chest x-ray was done this morning and reviewed. There is a mild increase in the interstitial prominence. There is also a possible left basal/retrocardiac infiltrate. The left hemidiaphragm is also elevated secondary to gaseous distention. CBC: White count 25.4, hemoglobin 10.5, hematocrit 31.6, platelets of 264. Complete metabolic profile: Glucose 133, AST 156, ALT 148. Rest of the metabolic profile is within normal limits. IMPRESSION: 1. Acute bronchitis. 2. Sepsis syndrome. 3. Rule out pneumonia -- left lower lobe. 4. Asthma. 5. Increased liver function enzymes. 6. Advanced multiple sclerosis. PLAN: Again, I did discuss the case with the patient and daughter at length. The patient presented to [facility] yesterday -- with main complaint of chest pain for 1 day. In addition, the patient also stated to cough with sputum production for the past 7 days. Lastly, the patient also presented to the Emergency Room with a temperature of 103.5, and was thus admitted for additional evaluation and treatment. I did review the chest x-ray as above. The chest x-ray is a semierect portable film. It shows a mild increase in the interstitial prominence. As above, there is also a possible left basal/retrocardiac infiltrate. This could also be atelectasis -- as the left hemidiaphragm is elevated secondary to gaseous distention. As a first step ,I will order a repeat chest x-ray -- PA and lateral -- for closer evaluation. On physical exam, the patient is in mild bronchospasm. I will change the nebulizer treatments to a scheduled dose and decrease the intravenous steroids. I will also add Pulmicort. There is no significant alveolar-arterial gradient. Oxygen saturation on nasal cannula is 100%. As above, the patient is feeling much better this morning -- with almost complete resolution of her chest pain. This chest pain may be very well musculoskeletal in nature and related to her cough. In any case, cardiology evaluation with Dr. Sherman has been ordered. The patient has been pancultured, and we will analyze the cultures when feasible. Antibiotics have been started by infectious disease. Input by Dr. Matthews is noted. Again, the patient is clinically improved this morning. Additional pulmonary intervention will be based on the clinical status of the patient, as well as the above results. I will discuss the above with Dr. Ortiz. Thank you very much for this pulmonary consultation. Nam Lezama MD cc: [id number] TT: 03/19/2017 10:51:04 Confirmation # [id number] Dictation # [id number] MTDD
[2017-03-19] MEDS: Sodium Chloride 0.9% 1,000 ML IV STA ×2 (11:13→19:59)
[2017-03-19] MEDS ORDERED: Piperacillin/Tazobact 3.375 gm 100 ML IVPB SCH (12:00)
[2017-03-19 12:25] LABS: PH,URINE 5.5 (4.7-8.0); URINE APPEARANCE CLEAR (CLEAR); URINE BILIRUBIN NEGATIVE (NEGATIVE); URINE BLOOD NEGATIVE (NEGATIVE); URINE COLOR YELLOW (YELLOW); URINE GLUCOSE (UA) NEGATIVE (NEGATIVE); URINE KETONE NEGATIVE (NEGATIVE); URINE LEUKOCYTE ESTERASE TRACE Leu/uL (NEGATIVE); URINE PROTEIN NEGATIVE mg/dL (<30 mg/dL); URINE UROBILINOGEN 0.2 E.U./dL (<1 E.U./dL)
[2017-03-19 12:33] LABS: URINE BACTERIA FEW (NEG); URINE EPITHELIAL CELLS 0 - 2 /hpf (0-5); URINE RBC NEGATIVE /hpf (0-2); URINE WBC 0 - 2 /hpf (0-6)
[2017-03-19] MEDS ORDERED: Barium Sulfate Susp 2.1% w/v, 2.0% w/w 450 mL Bottle PO ONE (13:11)
--- NOTE | 2017-03-19 13:54 | CON ---
DATE: 03/19/2017 HISTORY OF PRESENT ILLNESS: The patient is a 57-year-old woman whom I was asked to see for one episo de of chest pain. This was at home. Her chest pain also was associated with left shoulder pain whic h increased on movement, as well as mid back pain. She denies shortness of breath. PAST MEDICAL HISTORY: Notable for hypertension as well as asthma. In addition, her past medical history is associated with multiple sclerosis. Currently, the patient is chest pain free. SOCIAL HISTORY: She denies smoking. REVIEW OF SYSTEMS: A 14-point review of systems was reviewed in detail. No cardiac symptomatology o ther than transient chest pain was noted. No previous cardiac history, negative diabetes. But, she does admit to hypertension and hypercholesterolemia. She is also on Neurontin for neuropathy. PHYSICAL EXAMINATION: VITAL SIGNS: Blood pressure varies from 83-111 systolic. Temperature is 100.1. NECK: Negative JVD. LUNGS: Without rales. HEART: Reveals S1, S2. EXTREMITIES: Without edema. The white count is up to 25,000. The hemoglobin is 10.5. Chemistries: Troponins are negative x 2. Glucose is 133. LFTs are increasing. IMPRESSION: 1. I doubt her chest pain is of cardiac origin. 2. There is no evidence for acute coronary syndrome. 3. Hypertension. 4. Hypercholesterolemia. 5. Sepsis. 6. Multiple sclerosis. Given these findings, the patient is being pancultured. Looking for her source of sepsis is ongoing. The patient is currently on antibiotics. We will obtain serial troponins. Jason Sherman MD cc: [id number] TT: 03/19/2017 13:53:48 Confirmation # [id number] Dictation # [id number]
--- NOTE | 2017-03-19 13:55 | CP.PCM.CON ---
History of Present Illness - History of Present Illness History of Present Illness: 57 y/o F for which I was consulted for hypotension . She was admitted for non specific symptoms of chest pain, hypotension and elevated WBC. She was seen to be mildly hypotensive this morning by the IM resident. After receiving 2L N.S her BP stabilized to [id number]. Speaking with her, she states that she has been feeling run down, and had diarrhea on . Previously on abx 1 week prior for resp URi infection , otherwise no other infectious signs. Review of Systems - Constitutional Constitutional: Fatigue, Lethargy - EENT Eyes: absent: As Per HPI, Blind Spots, Blurred Vision, Change in Vision, Decreased Night Vision, Diplopia, Discharge, Dry Eye, Exophthalmos, Floaters, Irritation, Itchy Eyes, Loss of Peripheral Vision, Pain, Photophobia, Requires Corrective Lenses, Sees Flashes, Spots in Vision, Tunnel Vision, Other Visual Disturbances, Loss of Vision, Other Ears: absent: As Per HPI, Decreased Hearing, Ear Discharge, Ear Pain, Tinnitus, Abnormal Hearing, Disequilibrium, Dizziness, Other Nose/Mouth/Throat: absent: As Per HPI, Epistaxis, Nasal Congestion, Nasal Discharge, Nasal Obstruction, Nasal Trauma, Nose Pain, Post Nasal Drip, Sinus Pain, Sinus Pressure, Bleeding Gums, Change in Voice, Dental Pain, Dry Mouth, Dysphagia, Halitosis, Hoarsness, Lip Swelling, Mouth Lesions, Mouth Pain, Odynophagia, Sore Throat, Throat Swelling, Tongue Swelling, Facial Pain, Neck Pain, Neck Mass, Other - Breasts Breasts: absent: As Per HPI, Change in Shape, Mass, Pain, Nipple Discharge, Nipple Inversion, Skin Changes, Swelling, Other - Cardiovascular Cardiovascular: Chest Pain - Respiratory Respiratory: absent: As Per HPI, Cough, Dyspnea, Hemoptysis, Dyspnea on Exertion , Wheezing, Snoring, Stridor, Pain on Inspiration, Chest Congestion, Excessive Mucous Production, Change in Mucous Color, Pain with Coughing, Other - Gastrointestinal Gastrointestinal: Abdominal Pain, Diarrhea - Genitourinary Genitourinary: absent: As Per HPI, Change in Urinary Stream, Difficulty Urinating, Dysuria, Flank Pain, Hematuria, Pyuria, Nocturia, Urinary Incontinence, Urinary Frequency, Urinary Hesitance, Urinary Urgency, Voiding Freq/Small Amts, Freq UTI, Hx Renal/Bladder Calculi, Hx /Renal Surgery, Bladder Distension, Other - Reproductive: Female Reproductive:Female: absent: As Per HPI, Amenorrhea, Amenorrhea/ Control, Currently Menstual, Cycle <21 Days, Cycle >35 Days, Cycle Variable, Menses 1-7 Days, Menses >/= 8 Days, Menses Variable, Cycle > 4 Weeks Between, No Menses for 6 Months, Heavy Menses, Light Menses, Normal Menses, Spotting Between Cycles , S/P Hysterectomy, Menopausal, Post Menopausal, Premenarche, Abnormal Vaginal Bleeding, Dysmenorrhea, Dyspareunia, Genital Lesions, Genital Pruritis, Pelvic Pain, Prolapse Symptoms, Sexual Dysfunction, Vaginal Discharge, Vaginal Dryness , Vaginal Odor, Vaginal Pruritis, Other - Menstruation Menstruation: absent: As Per HPI, Amenorrhea, Amenorrhea/ Control, Currently Menstual, Cycle <21 Days, Cycle >35 Days, Cycle Variable, Menses 1-7 Days, Menses >/= 8 Days, Menses Variable, Cycle > 4 Weeks Between, No Menses for 6 Months, Heavy Menses, Light Menses, Normal Menses, Spotting Between Cycles , S/P Hysterectomy, Menopausal, Post Menopausal, Premenarche, Abnormal Vaginal Bleeding, Dysmenorrhea, Other - Musculoskeletal Musculoskeletal: absent: As Per HPI, Abnormal Gait, Arthralgias, Atrophy, Back Pain, Deformity, Joint Swelling, Limited Range of Motion, Loss of Height, Muscle Cramps, Muscle Weakness, Myalgias, Neck Pain, Numbness, Radiating Pain into Limb, Stiffness, Tingling, Other - Integumentary Integumentary: absent: As Per HPI, Acne, Alopecia, Bleeding Lesions, Change in Hair, Change in Nails, Change in Pigmentation, Changing Lesions, Dry Skin, Erythema, Furuncle, Hirsutism, Lesions, New Lesions, Non-Healing Lesions, Photosensitivity, Pruritus, Rash, Skin Pain, Skin Ulcer, Sores, Striae, Swelling , Unusual Bruising, Wounds, Jaundice, Other - Neurological Neurological: absent: As Per HPI, Abnormal Gait, Abnormal Hearing, Abnormal Movements, Abnormal Speech, Behavioral Changes, Burning Sensations, Confusion, Convulsions, Disequilibrium, Dizziness, Numbness, Focal Weakness, Frequent Falls , Headaches, Lack of Coordination, Loss of Vision, Memory Loss, Paresthesias, Radicular Pain, Restless Legs, Sensory Deficit, Syncope, Tingling, Tremor, Vertigo, Weakness, Other Visual Disturbances, Other Past Patient History - Past Social History Smoking Status: Never Smoked - CARDIAC Hx Cardiac Disorders: Yes Hx Hypertension: Yes - PULMONARY Hx Respiratory Disorders: Yes Hx Asthma: Yes - NEUROLOGICAL Hx Neurological Disorder: Yes Hx Multiple Sclerosis: Yes Hx Seizures: Yes - HEENT Hx HEENT Problems: No - RENAL Hx Chronic Kidney Disease: No - ENDOCRINE/METABOLIC Hx Endocrine Disorders: No - HEMATOLOGICAL/ONCOLOGICAL Hx Blood Disorders: No - INTEGUMENTARY Hx Dermatological Problems: No - MUSCULOSKELETAL/RHEUMATOLOGICAL Hx Musculoskeletal Disorders: Yes Hx Arthritis: Yes Hx Back Pain: Yes Hx Osteoarthritis: Yes - GASTROINTESTINAL Hx Gastrointestinal Disorders: No - GENITOURINARY/GYNECOLOGICAL Hx Genitourinary Disorders: No - PSYCHIATRIC Hx Psychophysiologic Disorder: No Hx Substance Use: No - SURGICAL HISTORY Other/Comment: Cervical spine surgery Meds Allergies/Adverse Reactions: Allergies Allergy/AdvReac Type Severity Reaction Status Date / Time No Known Allergies Allergy Verified 03/19/17 01:01 - Medications Medications: Current Medications Acetaminophen (Tylenol 325mg Tab) 650 mg PO Q4 PRN PRN Reason: Fever >100.4 F Last Admin: 03/19/17 04:29 Dose: 650 mg Albuterol/Ipratropium (Duoneb 3 Mg/0.5 Mg (3 Ml) Ud) 3 ml IH [id number] [facility] Albuterol/Ipratropium (Duoneb 3 Mg/0.5 Mg (3 Ml) Ud) 3 ml IH Q2H PRN PRN Reason: Shortness of Breath Aspirin (Aspirin Chewable) 81 mg PO DAILY [facility] Last Admin: 03/19/17 11:30 Dose: 81 mg Atorvastatin Calcium (Lipitor) 20 mg PO DIN [facility] Budesonide (Pulmicort Respules) 0.5 mg IH [id number] [facility] Carvedilol (Coreg) 12.5 mg PO BID [facility] Clonidine HCl (Catapres) 0.3 mg PO BID [facility] Last Admin: 03/19/17 12:26 Dose: Not Given Ergocalciferol (Drisdol 50,000 Intl Units Cap) 1 cap PO Q7D [facility] Last Admin: 03/19/17 11:31 Dose: 1 cap Famotidine (Pepcid) 40 mg PO HS [facility] Furosemide (Lasix) 20 mg PO DAILY [facility] Last Admin: 03/19/17 11:53 Dose: Not Given Gabapentin (Neurontin) 600 mg PO BID [facility] PRN Reason: Protocol Last Admin: 03/19/17 11:30 Dose: 600 mg Heparin Sodium (Porcine) (Heparin) 5,000 units SC Q12 [facility] PRN Reason: Protocol Last Admin: 03/19/17 11:31 Dose: 5,000 units Hydroxychloroquine Sulfate (Plaquenil) 200 mg PO BID [facility] Last Admin: 03/19/17 11:30 Dose: 200 mg Sodium Chloride (Sodium Chloride 0.9%) 1,000 mls @ 100 mls/hr IV .Q10H [facility] Last Admin: 03/19/17 12:29 Dose: 100 mls/hr Piperacillin Sod/Tazobactam Sod (Zosyn 3.375 In Ns 100ml) 100 mls @ 200 mls/hr IVPB Q6 [facility] PRN Reason: Protocol Stop: 03/26/17 12:01 Methylprednisolone (Solu-Medrol) 40 mg IVP Q12 [facility] Montelukast Sodium (Singulair) 10 mg PO DAILY [facility] Last Admin: 03/19/17 11:31 Dose: 10 mg Morphine Sulfate (Morphine) 2 mg IVP Q4H PRN PRN Reason: Pain, moderate (4-7) Non-Formulary Medication (Lacosamide [Vimpat]) 200 mg PO BID [facility] Last Admin: 03/19/17 11:53 Dose: Not Given Ondansetron HCl (Zofran Inj) 4 mg IVP Q4H PRN PRN Reason: Nausea/Vomiting Valsartan (Diovan) 320 mg PO DAILY [facility] Last Admin: 03/19/17 12:27 Dose: Not Given Physical Exam - Head Exam Head Exam: ATRAUMATIC, NORMAL INSPECTION, NORMOCEPHALIC - Eye Exam Eye Exam: Normal appearance, PERRL Pupil Exam: NORMAL ACCOMODATION - ENT Exam ENT Exam: Mucous Membranes Moist, Normal Exam - Respiratory Exam Respiratory Exam: Clear to Auscultation Bilateral, NORMAL BREATHING PATTERN - Cardiovascular Exam Cardiovascular Exam: REGULAR RHYTHM - GI/Abdominal Exam GI & Abdominal Exam: Normal Bowel Sounds, Soft - Exam External exam: NORMAL EXTERNAL EXAM - Extremities Exam Extremities exam: Positive for: normal inspection - Back Exam Back exam: NORMAL INSPECTION - Neurological Exam Neurological exam: Normal Gait, Oriented x3 - Psychiatric Exam Psychiatric exam: Normal Affect, Normal Mood Results - Vital Signs Recent Vital Signs: Last Vital Signs Temp 97.9 F 03/19/17 12:00 Pulse 69 03/19/17 12:00 Resp 17 03/19/17 12:00 BP 83/50 L 03/19/17 12:26 Pulse Ox 98 03/19/17 10:00 - Labs Result Diagrams: 03/19/17 06:40 03/19/17 06:40 Labs: Laboratory Results - last 24 hr 03/19/17 03/19/17 03/19/17 03:35 06:30 06:40 WBC 25.4 H* D RBC 3.91 Hgb 10.5 L Hct 31.6 L MCV 80.8 MCH 26.9 MCHC 33.2 RDW 14.7 H Plt Count 264 MPV 9.2 Gran % 81.2 H Lymph % (Auto) 7.5 L Lyman % (Auto) 10.7 H Eos % (Auto) 0.4 L Baso % (Auto) 0.2 Gran # 21.05 H Lymph # 1.9 Lyman # 2.8 H Eos # 0.1 Baso # 0.05 Sodium Potassium Chloride Carbon Dioxide Anion Gap BUN Creatinine Est GFR ( Amer) Est GFR (Non-Af Amer) Random Glucose Lactic Acid Calcium Phosphorus Magnesium Total Bilirubin AST ALT Alkaline Phosphatase Troponin I < 0.01 Total Protein Albumin Globulin Albumin/Globulin Ratio Urine Color Urine Appearance Urine pH Ur Specific [place] Urine Protein Urine Glucose (UA) Urine Ketones Urine Blood Urine Nitrate Urine Bilirubin Urine Urobilinogen Ur Leukocyte Esterase Urine RBC Urine WBC Ur Epithelial Cells Urine Bacteria Influenza Typ A,B (EIA) Negative for flu a/b 03/19/17 03/19/17 03/19/17 06:40 07:10 07:10 WBC RBC Hgb Hct MCV MCH MCHC RDW Plt Count MPV Gran % Lymph % (Auto) Lyman % (Auto) Eos % (Auto) Baso % (Auto) Gran # Lymph # Lyman # Eos # Baso # Sodium 135 Potassium 3.8 Chloride 102 Carbon Dioxide 23 Anion Gap 14 BUN 20 Creatinine 1.0 Est GFR ( Amer) > 60 Est GFR (Non-Af Amer) 57 Random Glucose 133 H Lactic Acid 1.9 Calcium 9.5 Phosphorus 2.6 Magnesium 2.0 Total Bilirubin 0.7 AST 156 H ALT 148 H Alkaline Phosphatase 132 Troponin I Total Protein 6.1 Albumin 3.5 Globulin 2.6 Albumin/Globulin Ratio 1.3 Urine Color Urine Appearance Urine pH Ur Specific [place] Urine Protein Urine Glucose (UA) Urine Ketones Urine Blood Urine Nitrate Urine Bilirubin Urine Urobilinogen Ur Leukocyte Esterase Urine RBC Urine WBC Ur Epithelial Cells Urine Bacteria Influenza Typ A,B (EIA) 03/19/17 03/19/17 11:40 12:03 WBC RBC Hgb Hct MCV MCH MCHC RDW Plt Count MPV Gran % Lymph % (Auto) Lyman % (Auto) Eos % (Auto) Baso % (Auto) Gran # Lymph # Lyman # Eos # Baso # Sodium Potassium Chloride Carbon Dioxide Anion Gap BUN Creatinine Est GFR ( Amer) Est GFR (Non-Af Amer) Random Glucose Lactic Acid Calcium Phosphorus Magnesium Total Bilirubin AST ALT Alkaline Phosphatase Troponin I < 0.01 Total Protein Albumin Globulin Albumin/Globulin Ratio Urine Color Yellow Urine Appearance Clear Urine pH 5.5 Ur Specific [place] <= 1.005 Urine Protein Negative Urine Glucose (UA) Negative Urine Ketones Negative Urine Blood Negative Urine Nitrate Negative Urine Bilirubin Negative Urine Urobilinogen 0.2 Ur Leukocyte Esterase Trace H Urine RBC Negative Urine WBC 0 - 2 Ur Epithelial Cells 0 - 2 Urine Bacteria Few Influenza Typ A,B (EIA) Assessment & Plan - Assessment and Plan (Free Text) Assessment: 57 y/o F w/ SIRS pending Sepsis workup SIRS Tachycardia and Hypotension resolved with IV fluids. Would continue to watch for sign sof infection. Draw blood, urine cx. Send C. DIff sample. Possibly increase abx to Flagyl added. Ct abd/ pelvis to check for any cause of the WBC? CXR reviewed, no signs of infection of acute findings. Lactate to be drawn and trended post hydration. Asthma On ICS, B agonists and Solumedrol ( hold) No acute resp symptoms. "Chest Pain" not present currently , unclear if its pleuritic? If any hypoxia or tachycardia, would possibly check for P.E w/ CT p.e chest protocol. dvt p Heparin sq MS hx- Neurology following. cc time 65 min case d/w IM resident on Primary team.
[2017-03-19] MEDS: Albuterol-Ipratrop 3 mg / 0.5 (3 ml) UD IH PRN (16:57)
[2017-03-19] MEDS: Albuterol-Ipratrop 3 mg / 0.5 (3 ml) UD IH SCH ×2 (16:58→20:00)
[2017-03-19] MEDS: LACOSAMIDE 200 MG PO SCH (17:34)
[2017-03-19] MEDS: Piperacillin/Tazobact 3.375 gm 100 ML IVPB SCH ×2 (17:38→21:54)
--- NOTE | 2017-03-19 17:46 | CP.PCM.CON ---
History of Present Illness - History of Present Illness History of Present Illness: 57 year old female with PMH of HTN, multiple sclerosis, dyslipidemia, asthma was brought in to [facility] after complaining of sudden onset chest pain as well as left shoulder pain and pain the middle of the upper back area a few hours prior to coming to the ER. Prior to this apparently the patient was feeling relatively well. She denies headache or dizziness, has mild SOB at rest, no nausea or vomiting, no abdominal pain, no diarrhea, no dysuria but the patient has some urinary frequency, no blurring of vision. She was complaining of cough about 2 weeks ago and was given Levaquin by her PMD with some improvement. In the ED, she presented with fever as well and Infectious diseases consult is requested to further evaluate and manage. Review of Systems - Review of Systems All systems: reviewed and no additional remarkable complaints except (as per HPI ) Past Patient History - Past Social History Smoking Status: Never Smoked - CARDIAC Hx Cardiac Disorders: Yes Hx Hypertension: Yes - PULMONARY Hx Respiratory Disorders: Yes Hx Asthma: Yes - NEUROLOGICAL Hx Neurological Disorder: Yes Hx Multiple Sclerosis: Yes Hx Seizures: Yes - HEENT Hx HEENT Problems: No - RENAL Hx Chronic Kidney Disease: No - ENDOCRINE/METABOLIC Hx Endocrine Disorders: No - HEMATOLOGICAL/ONCOLOGICAL Hx Blood Disorders: No - INTEGUMENTARY Hx Dermatological Problems: No - MUSCULOSKELETAL/RHEUMATOLOGICAL Hx Musculoskeletal Disorders: Yes Hx Arthritis: Yes Hx Back Pain: Yes Hx Osteoarthritis: Yes - GASTROINTESTINAL Hx Gastrointestinal Disorders: No - GENITOURINARY/GYNECOLOGICAL Hx Genitourinary Disorders: No - PSYCHIATRIC Hx Psychophysiologic Disorder: No Hx Substance Use: No - SURGICAL HISTORY Other/Comment: Cervical spine surgery Meds Allergies/Adverse Reactions: Allergies Allergy/AdvReac Type Severity Reaction Status Date / Time No Known Allergies Allergy Verified 03/19/17 01:01 - Medications Medications: Current Medications Acetaminophen (Tylenol 325mg Tab) 650 mg PO Q4 PRN PRN Reason: Fever >100.4 F Last Admin: 03/19/17 04:29 Dose: 650 mg Albuterol Sulfate (Albuterol 0.083% Inhal Natalya (2.5 Mg/3 Ml) Ud) 2.5 mg IH BIDRESP PRN PRN Reason: Shortness of Breath Aspirin (Aspirin Chewable) 81 mg PO DAILY [facility] Atorvastatin Calcium (Lipitor) 20 mg PO DIN [facility] Carvedilol (Coreg) 12.5 mg PO BID [facility] Clonidine HCl (Catapres) 0.3 mg PO BID [facility] Diltiazem HCl (Cardizem Cd) 240 mg PO HS [facility] Ergocalciferol (Drisdol 50,000 Intl Units Cap) 1 cap PO Q7D [facility] Famotidine (Pepcid) 40 mg PO HS [facility] Furosemide (Lasix) 20 mg PO DAILY [facility] Gabapentin (Neurontin) 600 mg PO BID [facility] PRN Reason: Protocol Heparin Sodium (Porcine) (Heparin) 5,000 units SC Q12 [facility] PRN Reason: Protocol Hydroxychloroquine Sulfate (Plaquenil) 200 mg PO BID [facility] Vancomycin HCl (Vancomycin 1gm) 1 gm in 250 mls @ 167 mls/hr IVPB DAILY [facility] PRN Reason: Protocol Sodium Chloride (Sodium Chloride 0.9%) 1,000 mls @ 100 mls/hr IV .Q10H [facility] Last Admin: 03/19/17 06:04 Dose: 100 mls/hr Montelukast Sodium (Singulair) 10 mg PO DAILY [facility] Morphine Sulfate (Morphine) 2 mg IVP Q4H PRN PRN Reason: Pain, moderate (4-7) Ondansetron HCl (Zofran Inj) 4 mg IVP Q4H PRN PRN Reason: Nausea/Vomiting Potassium Chloride (Klor-Con 10) 10 meq PO DAILY [facility] Valsartan (Diovan) 320 mg PO DAILY [facility] Physical Exam - Constitutional Appears: Non-toxic, No Acute Distress - Head Exam Head Exam: NORMAL INSPECTION - ENT Exam ENT Exam: Mucous Membranes Moist - Neck Exam Neck exam: Negative for: Lymphadenopathy, Meningismus - Respiratory Exam Respiratory Exam: Decreased Breath Sounds - Cardiovascular Exam Cardiovascular Exam: +S1, +S2 - GI/Abdominal Exam GI & Abdominal Exam: Soft. absent: Tenderness Results - Vital Signs Recent Vital Signs: Last Vital Signs Temp 102.6 F H 03/19/17 04:32 Pulse 102 H 03/19/17 04:32 Resp 20 03/19/17 04:32 BP 147/80 03/19/17 04:32 Pulse Ox 100 03/19/17 03:36 - Labs Result Diagrams: 03/19/17 06:40 03/19/17 06:40 Labs: Laboratory Results - last 24 hr 03/19/17 03:35 Troponin I < 0.01 Assessment & Plan - Assessment and Plan (Free Text) Plan: Assessment Systemic Inflammatory Response Syndrome, R/O sepsis secondary to left lower lobe pneumonia in a patient presenting with chest pain - since he has been exposed to Levaquin 2 weeks ago, will treat this as healthcare-associated pneumonia HTN multiple sclerosis dyslipidemia asthma Plan Started patient on a dose of IV Vancomycin and Zosyn and will start Doxycycline pending blood, sputum cx, urine Legionella Ag; PCT is <0.05 - will repeat tomorrow Will monitor clinically
[2017-03-19] MEDS: Budesonide 0.5 mg/2 ml Inhal Susp UD IH SCH (20:00)
[2017-03-19] MEDS ORDERED: diltiaZEM 240 mg/24 Hours CD Cap PO SCH (22:00)
[2017-03-19 22:22] LABS: URINE BILIRUBIN NEGATIVE (NEGATIVE); URINE BLOOD TRACE-INTACT (NEGATIVE); URINE GLUCOSE (UA) NEGATIVE (NEGATIVE); URINE KETONE NEGATIVE (NEGATIVE); URINE LEUKOCYTE ESTERASE TRACE Leu/uL (NEGATIVE); URINE PROTEIN NEGATIVE mg/dL (<30 mg/dL); URINE UROBILINOGEN 0.2 E.U./dL (<1 E.U./dL)
[2017-03-19 22:33] LABS: URINE APPEARANCE CLEAR (CLEAR); URINE COLOR YELLOW (YELLOW)
[2017-03-19] MEDS ORDERED: guaiFENesin 100 mg/5 ml Syrup UD PO PRN (23:03)
[2017-03-19 23:19] LABS: URINE BACTERIA FEW (NEG); URINE RBC 0 - 2 /hpf (0-2); URINE WBC 0 - 2 /hpf (0-6)
[2017-03-20] MEDS: Sodium Chloride 0.9% 1,000 ML IV SCH (01:03)
--- NOTE | 2017-03-20 01:14 | CARD ---
APPROVED REPORT EXAM: Two-dimensional and M-mode echocardiogram with Doppler and color Doppler. 2D DIMENSIONS Left Atrium (2D)3.0 (1.6-4.0cm)IVSd1.3 (0.7-1.1cm) LVDd4.1 (3.9-5.9cm)PWd1.2 (0.7-1.1cm) LVDs2.3 (2.5-4.0cm)FS (%) 43.1 % LVEF (%)74.8 (>50%) M-Mode DIMENSIONS Aortic Root3.10 (2.2-3.7cm)Aortic Cusp Exc.2.20 (1.5-2.0cm) Aortic Valve AoV Peak Iwjolzsc484.0cm/sAoV VTI33.8cmAO Peak GR.13mmHg LVOT Peak Kfgnbljy693.0cm/sLVOT VTI31.50cmAO Mean GR.7mmHg Mitral Valve MV E Qhudjjja90.5cm/sMV A Hdwsydas33.8cm/sE/A ratio0.8 TDI Lateral E' Peak V9.46cm/sMedial E' Peak V7.99cm/sE/Lateral E'8.3 E/Medial E'9.8 Tricuspid Valve TR Peak Eogqqabk838cc/sRAP [id number] Peak Gr.28mmHg NABY76blQs LEFT VENTRICLE The left ventricle is normal size. There is mild concentric left ventricular hypertrophy. The left ventricular function is normal. The left ventricular ejection fraction is within the normal range. There is normal LV segmental wall motion. Transmitral Doppler flow pattern is Grade I-abnormal relaxation pattern. RIGHT VENTRICLE The right ventricle is normal size. There is normal right ventricular wall thickness. The right ventricular systolic function is normal. ATRIA The left atrium size is normal. The right atrium size is normal. AORTIC VALVE The aortic valve is mildly sclerotic. No aortic regurgitation is present. MITRAL VALVE The mitral valve is moderately thickened. There is no mitral valve regurgitation noted. TRICUSPID VALVE There is mild pulmonary hypertension. GREAT VESSELS The aortic root is normal in size. The IVC is normal in size and collapses >50% with inspiration. PERICARDIAL EFFUSION There is no pericardial effusion. <Conclusion> The left ventricle is normal size. There is mild concentric left ventricular hypertrophy. The left ventricular function is normal. The left ventricular ejection fraction is within the normal range. There is normal LV segmental wall motion. Transmitral Doppler flow pattern is Grade I-abnormal relaxation pattern. There is mild pulmonary hypertension.
--- NOTE | 2017-03-20 02:28 | CARD ---
APPROVED REPORT EKG Measurement Heart [id number] <Conclusion> Sinus tachycardia Minimal voltage criteria for LVH, may be normal variant Borderline ECG
--- NOTE | 2017-03-20 02:29 | CARD ---
APPROVED REPORT EKG Measurement Heart [id number] <Conclusion> Sinus tachycardia Moderate voltage criteria for LVH, may be normal variant Borderline ECG
[2017-03-20] MEDS: Piperacillin/Tazobact 3.375 gm 100 ML IVPB SCH ×4 (02:56→21:44)
[2017-03-20] MEDS: Albuterol-Ipratrop 3 mg / 0.5 (3 ml) UD IH SCH ×4 (03:48→19:25)
--- NOTE | 2017-03-20 06:48 | CP.PCM.PN ---
<Carol Francisco - Last Filed: 03/20/17 13:16> Subjective - Date & Time of Evaluation Date of Evaluation: 03/20/17 Time of Evaluation: 07:10 - Subjective Subjective: Medicine progress note for Dr Ortiz and Dr Post Patient became hypotensive yesterday afternoon, with SBP of 70-80, patient 's BP responded well to fluid boluses. No events overnight. Patient had no acute cardiac events on tele. Patient c/o cough. Patient states her fever has resolved. Patient states the left sided chest pain and back pain is still there , non reproducible, mostly when she coughs, and it feels sore. Patient denies sob, n/v, patient admits to an episode of diarrhea this AM. Patient saturating well on room air. Objective - Vital Signs/Intake and Output Vital Signs (last 24 hours): Temp Pulse Resp BP Pulse Ox 98.1 F 86 20 157/77 H 96 03/20/17 05:25 03/20/17 05:25 03/20/17 05:25 03/20/17 05:25 03/20/17 05:25 Intake and Output: 03/19/17 03/20/17 18:59 06:59 Intake Total 5440 Output Total 1000 Balance 4440 - Medications Medications: Current Medications Acetaminophen (Tylenol 325mg Tab) 650 mg PO Q4 PRN PRN Reason: Fever >100.4 F Last Admin: 03/19/17 17:17 Dose: 650 mg Albuterol/Ipratropium (Duoneb 3 Mg/0.5 Mg (3 Ml) Ud) 3 ml IH [id number] [facility] Last Admin: 03/20/17 03:48 Dose: 3 ml Albuterol/Ipratropium (Duoneb 3 Mg/0.5 Mg (3 Ml) Ud) 3 ml IH Q2H PRN PRN Reason: Shortness of Breath Last Admin: 03/19/17 16:57 Dose: 3 ml Aspirin (Aspirin Chewable) 81 mg PO DAILY [facility] Last Admin: 03/19/17 11:30 Dose: 81 mg Atorvastatin Calcium (Lipitor) 20 mg PO DIN [facility] Last Admin: 03/19/17 17:46 Dose: 20 mg Budesonide (Pulmicort Respules) 0.5 mg IH [id number] [facility] Last Admin: 03/19/17 20:00 Dose: 0.5 mg Carvedilol (Coreg) 12.5 mg PO BID [facility] Clonidine HCl (Catapres) 0.3 mg PO BID [facility] Last Admin: 03/19/17 12:26 Dose: Not Given Doxycycline Hyclate (Doryx) 100 mg PO Q12 [facility] PRN Reason: Protocol Last Admin: 03/19/17 21:54 Dose: 100 mg Ergocalciferol (Drisdol 50,000 Intl Units Cap) 1 cap PO Q7D [facility] Last Admin: 03/19/17 11:31 Dose: 1 cap Famotidine (Pepcid) 40 mg PO HS [facility] Last Admin: 03/19/17 21:55 Dose: 40 mg Furosemide (Lasix) 20 mg PO DAILY [facility] Last Admin: 03/19/17 11:53 Dose: Not Given Gabapentin (Neurontin) 600 mg PO BID [facility] PRN Reason: Protocol Last Admin: 03/19/17 19:51 Dose: 600 mg Guaifenesin (Robitussin) 100 mg PO Q4H PRN PRN Reason: Cough Last Admin: 03/19/17 23:42 Dose: 100 mg Heparin Sodium (Porcine) (Heparin) 5,000 units SC Q12 [facility] PRN Reason: Protocol Last Admin: 03/19/17 21:55 Dose: 5,000 units Hydroxychloroquine Sulfate (Plaquenil) 200 mg PO BID [facility] Last Admin: 03/19/17 17:47 Dose: 200 mg Sodium Chloride (Sodium Chloride 0.9%) 1,000 mls @ 100 mls/hr IV .Q10H [facility] Last Admin: 03/20/17 01:03 Dose: 100 mls/hr Piperacillin Sod/Tazobactam Sod (Zosyn 3.375 In Ns 100ml) 100 mls @ 200 mls/hr IVPB 0900,1500,2100,0300 [facility] PRN Reason: Protocol Stop: 03/26/17 15:01 Last Admin: 03/20/17 02:56 Dose: 200 mls/hr Methylprednisolone (Solu-Medrol) 40 mg IVP Q12 [facility] Montelukast Sodium (Singulair) 10 mg PO DAILY [facility] Last Admin: 03/19/17 11:31 Dose: 10 mg Morphine Sulfate (Morphine) 2 mg IVP Q4H PRN PRN Reason: Pain, moderate (4-7) Lacosamide [Vimpat] (200 Mg) 200 mg PO BID [facility] Last Admin: 03/19/17 17:34 Dose: 200 mg Ondansetron HCl (Zofran Inj) 4 mg IVP Q4H PRN PRN Reason: Nausea/Vomiting Valsartan (Diovan) 320 mg PO DAILY [facility] Last Admin: 03/19/17 12:27 Dose: Not Given - Labs Labs: 03/19/17 06:40 03/19/17 06:40 PT 10.5 Seconds (9.9-11.8) 03/19/17 01:20 INR 0.97 (0.93-1.08) 03/19/17 01:20 APTT 24.3 Seconds (23.7-30.8) 03/19/17 01:20 - Constitutional Appears: No Acute Distress - Head Exam Head Exam: ATRAUMATIC, NORMAL INSPECTION, NORMOCEPHALIC - Eye Exam Eye Exam: EOMI, Normal appearance, PERRL. absent: Scleral icterus - ENT Exam ENT Exam: Mucous Membranes Moist - Neck Exam Neck Exam: Normal Inspection - Respiratory Exam Respiratory Exam: Rhonchi (left at the bases. ), NORMAL BREATHING PATTERN. absent: Rales, Wheezes, Respiratory Distress, Stridor - Cardiovascular Exam Cardiovascular Exam: REGULAR RHYTHM, RRR, +S1, +S2. absent: Murmur - GI/Abdominal Exam GI & Abdominal Exam: Soft, Normal Bowel Sounds. absent: Distended (obesd abdomen.), Firm, Guarding, Rigid, Tenderness - Extremities Exam Extremities Exam: absent: Pedal Edema - Back Exam Back Exam: NORMAL INSPECTION - Neurological Exam Neurological Exam: Alert, Awake, Oriented x3 - Psychiatric Exam Psychiatric exam: Normal Affect, Normal Mood - Skin Skin Exam: Dry, Intact, Normal Color, Warm Assessment and Plan - Assessment and Plan (Free Text) Assessment: Patient is a 57 y/o F with P,H of htn, MS, and asthma whom presented with non specific left sided chest pain and back pain, and is currently admitted with sepsis with pneumonia as the possible source. Plan: 1) Sepsis with pneumonia as the possible source - Tachycardia, fever has resolved. - Leukocytosis trending, although on solumedrol - procal low - blood and urine culture so far no growth - ID following - on Zoxyn and doxy 2) HAP of the lingular lobe. - on abx - pulm following - on tapering dose steroid - on duoneb standing dose, and prn dose. - robitussin for cough 3) Transaminitis - AST/ALT are trending down - will obtain hep panel - Although can be hydroxychloroquine adverse reaction 4) Normocytic anemia likely dilutional - No signs of active bleeding - will monitor for now - will consider anemia work up 5) Diarrhea - will obtain cdiff. 6) Asthma - on duoneb, pulmocort, singulair, 7) MS- currently not on therapy - neurology following 8) htn - will consider restarting some of htn meds 9) HLD - Will continue lipitor 10) Arthritis and Neuropathy - will continue gabapentin and plaquenil 11) h/o seizure disorders - will continue vimpat 12) DVT and gi prophylaxis: pepcid and heparin sc. Patient seen, examined, case discussed with Dr Ortiz. <Jeff Ortiz - Last Filed: 04/11/17 13:53> Objective - Vital Signs/Intake and Output Vital Signs (last 24 hours): Temp Pulse Resp BP Pulse Ox 98.3 F 73 20 122/74 96 03/22/17 16:00 03/22/17 16:00 03/22/17 16:00 03/22/17 16:00 03/22/17 16:00 - Labs Labs: 03/22/17 07:00 03/22/17 07:00 PT 10.5 Seconds (9.9-11.8) 03/19/17 01:20 INR 0.97 (0.93-1.08) 03/19/17 01:20 APTT 24.3 Seconds (23.7-30.8) 03/19/17 01:20 Attending/Attestation - Attestation I have personally seen and examined this patient.: Yes I have fully participated in the care of the patient.: Yes I have reviewed all pertinent clinical information, including history, physical exam and plan: Yes Notes (Text): 04/11/17 13:53 Resident note done after seen and examined by me with discussion. The note is a representation of my history, physical and plan for patient.
--- NOTE | 2017-03-20 07:37 | PN ---
DATE: 03/20/2017 SUBJECTIVE: The patient appears very comfortable this morning. She is not short of breath at rest. PHYSICAL EXAMINATION: VITAL SIGNS: Temperature is 98.1, pulse 86, respirations 18/20, blood pressure 157/77. Oxygen saturation on room air is 96%-98%. HEENT: Normocephalic, atraumatic. No JVD. CARDIOVASCULAR: Positive S1, S2. No S3. LUNGS: Minimal crackles at both bases. Less rhonchi. No wheezing. EXTREMITIES: No clubbing, cyanosis, or edema. Calves are nontender to palpation. GASTROINTESTINAL: Abdomen is soft, nontender, nondistended. Bowel sounds are positive. SKIN: No acute rash. NEUROLOGIC: Limited at the present time. PERTINENT LABORATORY DATA: Chest x-ray was repeated yesterday and reviewed. There is a probable small left basal infiltrate. I have also reviewed the CAT scan of the abdomen (no official results). There is a patchy infiltrate noted at the left base. IMPRESSION: 1. Acute bronchitis. 2. Sepsis syndrome. 3. Left lower lobe pneumonia. 4. Asthma. 5. Increased liver function enzymes. 6. Advanced multiple sclerosis. PLAN: The patient appears very comfortable this morning. She is not short of breath at rest. She states she is feeling much better overall. On physical exam, her bronchospasm is certainly less. I will continue with the current nebulizer treatments and inhaled Pulmicort for now. I will also decrease the intravenous steroids this morning. I would continue with the antibiotic coverage as per infectious disease. Input by Dr. Matthews is noted. The temperatures have now fully resolved. Repeat a.m. labs are pending. Clinical status of the patient is significantly improved -- compared to the initial presentation. We are awaiting a neurologic evaluation. I will discuss the above with the attending physician. Nam Lezama MD cc: [id number] TT: 03/20/2017 07:36:59 Confirmation # [id number] Dictation # [id number] en MTDD
[2017-03-20 07:50] LABS: HEMATOCRIT 30.3 % (36.0-48.0); MEAN CELL VOLUME 80.4 fL (80.0-105.0); MEAN CORPUSCULAR HEMOGLOBIN 27.3 pg (25.0-35.0); MEAN PLATELET VOLUME 9.3 fl (7.0-11.0); RED CELL DISTRIBUTION WIDTH 15.1 % (11.5-14.5); WHITE BLOOD COUNT 19.8 10^3/ul (4.5-11.0)
[2017-03-20 08:01] LABS: ALB/GLOB RATIO 1.2 (1.1-1.8); ALKALINE PHOSPHATASE 123 U/L (38-133); ALT/SGPT 116 U/L (7-56); AST/SGOT 50 U/L (15-39); BILIRUBIN,TOTAL 0.7 mg/dL (0.2-1.3); BLOOD UREA NITROGEN 10 mg/dL (7-21); CALCIUM 9.9 mg/dL (8.4-10.5); CARBON DIOXIDE 23 mmol/L (21-33); CHLORIDE 111 mmol/L (98-107); GFR AFRICAN-AMERICAN > 60; GLUCOSE,RANDOM 95 mg/dL (70-110); MAGNESIUM 1.8 mg/dL (1.7-2.2); PHOSPHOROUS 2.6 mg/dL (2.5-4.5); POTASSIUM 3.7 mmol/L (3.6-5.0); SODIUM 142 mmol/L (132-148); TOTAL PROTEIN 6.3 g/dL (5.8-8.3)
--- NOTE | 2017-03-20 08:06 | RAD ---
HISTORY: follow up COMPARISON: 03/19/2017 at 2:07 a.m. TECHNIQUE: Chest PA and lateral FINDINGS: LUNGS: No active pulmonary disease. PLEURA: No evidence of pleural effusion or pneumothorax. CARDIOVASCULAR: Normal. OSSEOUS STRUCTURES: No significant abnormalities. VISUALIZED UPPER ABDOMEN: Normal. OTHER FINDINGS: None. IMPRESSION: No active disease.
[2017-03-20] MEDS: Budesonide 0.5 mg/2 ml Inhal Susp UD IH SCH ×2 (08:09→19:25)
--- NOTE | 2017-03-20 08:58 | CP.PCM.PN ---
<NorbertPeña spears - Last Filed: 03/20/17 08:55> Subjective - Date & Time of Evaluation Date of Evaluation: 03/20/17 Time of Evaluation: 08:55 - Subjective Subjective: Neurology Progress Note - Dr. Moore Service Patient seen and examined at bedside. No acute events overnight. Patient continues to experience chest discomfort with deep breaths as well as diarrhea this morning. She is now afebrile. Shoulder pain and parasthesias are resolved. Objective - Vital Signs/Intake and Output Vital Signs (last 24 hours): Temp Pulse Resp BP Pulse Ox 98.1 F 86 20 157/77 H 96 03/20/17 05:25 03/20/17 05:25 03/20/17 05:25 03/20/17 05:25 03/20/17 05:25 Intake and Output: 03/20/17 03/20/17 06:59 18:59 Intake Total 5440 Output Total 1000 Balance 4440 - Medications Medications: Current Medications Acetaminophen (Tylenol 325mg Tab) 650 mg PO Q4 PRN PRN Reason: Fever >100.4 F Last Admin: 03/19/17 17:17 Dose: 650 mg Albuterol/Ipratropium (Duoneb 3 Mg/0.5 Mg (3 Ml) Ud) 3 ml IH [id number] [facility] Last Admin: 03/20/17 08:09 Dose: 3 ml Albuterol/Ipratropium (Duoneb 3 Mg/0.5 Mg (3 Ml) Ud) 3 ml IH Q2H PRN PRN Reason: Shortness of Breath Last Admin: 03/19/17 16:57 Dose: 3 ml Aspirin (Aspirin Chewable) 81 mg PO DAILY [facility] Last Admin: 03/19/17 11:30 Dose: 81 mg Atorvastatin Calcium (Lipitor) 20 mg PO DIN [facility] Last Admin: 03/19/17 17:46 Dose: 20 mg Budesonide (Pulmicort Respules) 0.5 mg IH [id number] [facility] Last Admin: 03/20/17 08:09 Dose: 0.5 mg Carvedilol (Coreg) 12.5 mg PO BID [facility] Clonidine HCl (Catapres) 0.3 mg PO BID [facility] Last Admin: 03/19/17 12:26 Dose: Not Given Doxycycline Hyclate (Doryx) 100 mg PO Q12 [facility] PRN Reason: Protocol Last Admin: 03/19/17 21:54 Dose: 100 mg Ergocalciferol (Drisdol 50,000 Intl Units Cap) 1 cap PO Q7D [facility] Last Admin: 03/19/17 11:31 Dose: 1 cap Famotidine (Pepcid) 40 mg PO HS [facility] Last Admin: 03/19/17 21:55 Dose: 40 mg Furosemide (Lasix) 20 mg PO DAILY [facility] Last Admin: 03/19/17 11:53 Dose: Not Given Gabapentin (Neurontin) 600 mg PO BID [facility] PRN Reason: Protocol Last Admin: 03/19/17 19:51 Dose: 600 mg Guaifenesin (Robitussin) 100 mg PO Q4H PRN PRN Reason: Cough Last Admin: 03/19/17 23:42 Dose: 100 mg Heparin Sodium (Porcine) (Heparin) 5,000 units SC Q12 [facility] PRN Reason: Protocol Last Admin: 03/19/17 21:55 Dose: 5,000 units Hydroxychloroquine Sulfate (Plaquenil) 200 mg PO BID [facility] Last Admin: 03/19/17 17:47 Dose: 200 mg Piperacillin Sod/Tazobactam Sod (Zosyn 3.375 In Ns 100ml) 100 mls @ 200 mls/hr IVPB 0900,1500,2100,0300 [facility] PRN Reason: Protocol Stop: 03/26/17 15:01 Last Admin: 03/20/17 02:56 Dose: 200 mls/hr Methylprednisolone (Solu-Medrol) 30 mg IVP Q12 [facility] Montelukast Sodium (Singulair) 10 mg PO DAILY [facility] Last Admin: 03/19/17 11:31 Dose: 10 mg Morphine Sulfate (Morphine) 2 mg IVP Q4H PRN PRN Reason: Pain, moderate (4-7) Lacosamide [Vimpat] (200 Mg) 200 mg PO BID [facility] Last Admin: 03/19/17 17:34 Dose: 200 mg Ondansetron HCl (Zofran Inj) 4 mg IVP Q4H PRN PRN Reason: Nausea/Vomiting Valsartan (Diovan) 320 mg PO DAILY [facility] Last Admin: 03/19/17 12:27 Dose: Not Given - Labs Labs: 03/20/17 06:30 03/20/17 06:30 PT 10.5 Seconds (9.9-11.8) 03/19/17 01:20 INR 0.97 (0.93-1.08) 03/19/17 01:20 APTT 24.3 Seconds (23.7-30.8) 03/19/17 01:20 - Constitutional Appears: Non-toxic, No Acute Distress - Head Exam Head Exam: ATRAUMATIC, NORMOCEPHALIC - Eye Exam Eye Exam: EOMI, PERRL - ENT Exam ENT Exam: Mucous Membranes Moist, Normal Exam - Neck Exam Neck Exam: Full ROM, Normal Inspection. absent: Lymphadenopathy, Meningismus - Respiratory Exam Respiratory Exam: Rhonchi (scattered b/l ). absent: Accessory Muscle Use, Respiratory Distress - Cardiovascular Exam Cardiovascular Exam: +S2 - GI/Abdominal Exam GI & Abdominal Exam: Soft. absent: Distended, Tenderness - Extremities Exam Extremities Exam: Full ROM. absent: Calf Tenderness, Pedal Edema - Back Exam Back Exam: NORMAL INSPECTION. absent: paraspinal tenderness - Neurological Exam Neurological Exam: Alert, Awake, Oriented x3 - Psychiatric Exam Psychiatric exam: Normal Affect, Normal Mood - Skin Skin Exam: Normal Color, Warm Assessment and Plan - Assessment and Plan (Free Text) Assessment: 57 y/o female with hx MS, HTN, HLD presenting with SIRS/sepsis syndrome likely 2 /2 community acquired pneumonia. Patient's presenting symptoms are not likely related to a MS flare. She is now afebrile and remains without signs of meningitis. - continue abx per ID and medical team - recommend holding off on steroid use if possible - continue chest PT, home asthma medications - patient will f/u in the office after discharge - will d/w attending <Juan Alberto Moore - Last Filed: 05/16/17 12:00> Objective - Vital Signs/Intake and Output Vital Signs (last 24 hours): Temp Pulse Resp BP Pulse Ox 98.3 F 73 20 122/74 96 03/22/17 16:00 03/22/17 16:00 03/22/17 16:00 03/22/17 16:00 03/22/17 16:00 - Labs Labs: 03/22/17 07:00 03/22/17 07:00 PT 10.5 Seconds (9.9-11.8) 03/19/17 01:20 INR 0.97 (0.93-1.08) 03/19/17 01:20 APTT 24.3 Seconds (23.7-30.8) 03/19/17 01:20 Attending/Attestation - Attestation I have personally seen and examined this patient.: Yes I have fully participated in the care of the patient.: Yes I have reviewed all pertinent clinical information, including history, physical exam and plan: Yes
[2017-03-20] MEDS: MethylPREDNISolone 40 mg Vial IVP SCH ×2 (10:30→21:45)
[2017-03-20] MEDS: LACOSAMIDE 200 MG PO SCH ×2 (10:51→17:33)
--- NOTE | 2017-03-20 11:43 | CT ---
PROCEDURE: CT Abdomen and Pelvis without intravenous contrast HISTORY: Colitis COMPARISON: None. TECHNIQUE: Without contrast.. Contrast Dose: 0 Radiation dose: Total exam DLP = 488.58 mGy-cm. This CT exam was performed using one or more of the following dose reduction techniques: Automated exposure control, adjustment of the mA and/or kV according to patient size, and/or use of iterative reconstruction technique. FINDINGS: LOWER THORAX: Left lower lobe infiltrate. Few foci of nonspecific irregular opacity in the right lower lobe, possibly reflecting early infiltrate. Followup advised. No pleural effusion. Small pericardial effusion. LIVER: Unremarkable. No gross lesion or ductal dilatation. GALLBLADDER AND BILE DUCTS: Unremarkable. PANCREAS: Unremarkable. No gross lesion or ductal dilatation. SPLEEN: Unremarkable. ADRENALS: Unremarkable. No mass. KIDNEYS AND URETERS: Few tiny punctate right renal calculi, 1 mm. Multiple left lower pole renal calculi, largest 5 mm. There is a probable talus seal diverticulum in the lower pole of the left kidney, 1.9 cm. There are dependent calculi as well as probable milk of calcium creating a fluid level. No hydronephrosis. No hydroureter. VASCULATURE: Unremarkable. No aortic aneurysm. BOWEL: Unremarkable. No obstruction. No gross mural thickening. APPENDIX: Unremarkable. Normal appendix. PERITONEUM: Unremarkable. No free fluid. No free air. LYMPH NODES: Unremarkable. No enlarged lymph nodes. BLADDER: Unremarkable. REPRODUCTIVE: Several coarse calcifications within the uterus likely representing calcification within fibroids or small degenerated calcified fibroids. . BONES: No acute fracture. OTHER FINDINGS: None. IMPRESSION: No evidence of colitis. Left lower lobe infiltrate. Few nonspecific irregular opacities in the right lower lobe. Possible early pneumonia. Followup advised. Small pericardial effusion. Nonobstructing bilateral renal calculi, largest 5 mm lower pole left kidney. 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 No other acute abnormality.
--- NOTE | 2017-03-20 13:30 | PN ---
DATE: 03/20/2017 The patient is asymptomatic. PHYSICAL EXAMINATION: GENERAL: The patient is afebrile, blood pressure 157/77. The heart rate is in the 80s. NECK: Negative JVD. LUNGS: Without rales. HEART: Reveals S1, S2. EXTREMITIES: Without edema. LABORATORY DATA: The hemoglobin is 10.3, the white count is down to 19.8. Chemistries: Troponins are negative x 2. IMPRESSION: 1. Sepsis. 2. No evidence for acute coronary syndrome. 3. Hypertension. 4. Hypercholesterolemia. 5. History of multiple sclerosis. 6. Resolution of chest pain. Given these findings, we will discontinue telemetry today. From a cardiac perspective, we will consi aden an outpatient stress test once her sepsis is all resolved. Jason Sherman MD cc: [id number] TT: 03/20/2017 13:29:38 Confirmation # [id number] Dictation # [id number] tn
--- NOTE | 2017-03-20 18:58 | CP.PCM.PN ---
Subjective - Date & Time of Evaluation Date of Evaluation: 03/20/17 Time of Evaluation: 11:40 - Subjective Subjective: Comfortable in bed, not in distress, no fever overnight, chest pain has resolved. Objective - Vital Signs/Intake and Output Vital Signs (last 24 hours): Temp Pulse Resp BP Pulse Ox 97.8 F 83 16 101/80 96 03/20/17 12:00 03/20/17 12:00 03/20/17 12:00 03/20/17 12:00 03/20/17 05:25 Intake and Output: 03/20/17 03/20/17 06:59 18:59 Intake Total 5440 500 Output Total 1000 Balance 4440 500 - Medications Medications: Current Medications Acetaminophen (Tylenol 325mg Tab) 650 mg PO Q4 PRN PRN Reason: Fever >100.4 F Last Admin: 03/20/17 14:09 Dose: 650 mg Albuterol/Ipratropium (Duoneb 3 Mg/0.5 Mg (3 Ml) Ud) 3 ml IH [id number] [facility] Last Admin: 03/20/17 14:13 Dose: 3 ml Albuterol/Ipratropium (Duoneb 3 Mg/0.5 Mg (3 Ml) Ud) 3 ml IH Q2H PRN PRN Reason: Shortness of Breath Last Admin: 03/19/17 16:57 Dose: 3 ml Aspirin (Aspirin Chewable) 81 mg PO DAILY [facility] Last Admin: 03/20/17 10:31 Dose: 81 mg Atorvastatin Calcium (Lipitor) 20 mg PO DIN [facility] Last Admin: 03/20/17 17:35 Dose: 20 mg Budesonide (Pulmicort Respules) 0.5 mg IH [id number] [facility] Last Admin: 03/20/17 08:09 Dose: 0.5 mg Carvedilol (Coreg) 12.5 mg PO BID [facility] Clonidine HCl (Catapres) 0.3 mg PO BID [facility] Last Admin: 03/19/17 12:26 Dose: Not Given Doxycycline Hyclate (Doryx) 100 mg PO Q12 [facility] PRN Reason: Protocol Last Admin: 03/20/17 10:31 Dose: 100 mg Ergocalciferol (Drisdol 50,000 Intl Units Cap) 1 cap PO Q7D [facility] Last Admin: 03/19/17 11:31 Dose: 1 cap Famotidine (Pepcid) 40 mg PO HS [facility] Last Admin: 03/19/17 21:55 Dose: 40 mg Furosemide (Lasix) 20 mg PO DAILY [facility] Last Admin: 03/19/17 11:53 Dose: Not Given Gabapentin (Neurontin) 600 mg PO BID [facility] PRN Reason: Protocol Last Admin: 03/20/17 17:34 Dose: 600 mg Guaifenesin (Robitussin) 100 mg PO Q4H PRN PRN Reason: Cough Last Admin: 03/19/17 23:42 Dose: 100 mg Heparin Sodium (Porcine) (Heparin) 5,000 units SC Q12 [facility] PRN Reason: Protocol Last Admin: 03/20/17 10:30 Dose: 5,000 units Hydroxychloroquine Sulfate (Plaquenil) 200 mg PO BID [facility] Last Admin: 03/20/17 17:34 Dose: 200 mg Piperacillin Sod/Tazobactam Sod (Zosyn 3.375 In Ns 100ml) 100 mls @ 200 mls/hr IVPB 0900,1500,2100,0300 [facility] PRN Reason: Protocol Stop: 03/26/17 15:01 Last Admin: 03/20/17 15:17 Dose: 200 mls/hr Methylprednisolone (Solu-Medrol) 30 mg IVP Q12 [facility] Last Admin: 03/20/17 10:30 Dose: 30 mg Montelukast Sodium (Singulair) 10 mg PO DAILY [facility] Last Admin: 03/20/17 10:31 Dose: 10 mg Morphine Sulfate (Morphine) 2 mg IVP Q4H PRN PRN Reason: Pain, moderate (4-7) Lacosamide [Vimpat] (200 Mg) 200 mg PO BID [facility] Last Admin: 03/20/17 17:33 Dose: 200 mg Ondansetron HCl (Zofran Inj) 4 mg IVP Q4H PRN PRN Reason: Nausea/Vomiting Valsartan (Diovan) 320 mg PO DAILY [facility] Last Admin: 03/19/17 12:27 Dose: Not Given - Labs Labs: 03/20/17 06:30 03/20/17 06:30 PT 10.5 Seconds (9.9-11.8) 03/19/17 01:20 INR 0.97 (0.93-1.08) 03/19/17 01:20 APTT 24.3 Seconds (23.7-30.8) 03/19/17 01:20 - Constitutional Appears: Non-toxic, No Acute Distress - Head Exam Head Exam: NORMAL INSPECTION - ENT Exam ENT Exam: Mucous Membranes Moist - Neck Exam Neck Exam: absent: Lymphadenopathy, Meningismus - Respiratory Exam Respiratory Exam: Decreased Breath Sounds - Cardiovascular Exam Cardiovascular Exam: +S1, +S2 - GI/Abdominal Exam GI & Abdominal Exam: Soft. absent: Tenderness Assessment and Plan - Assessment and Plan (Free Text) Plan: Assessment consider sepsis secondary to left lower lobe pneumonia in a patient presenting with chest pain - since he has been exposed to Levaquin 2 weeks ago, will treat this as healthcare-associated pneumonia HTN multiple sclerosis dyslipidemia asthma Plan continue Zosyn and Doxycycline pending final blood, sputum cx, urine Legionella Ag; today is day 2, will targert 4-7 days of therapy Will continue to monitor clinically
[2017-03-20] MEDS: Albuterol-Ipratrop 3 mg / 0.5 (3 ml) UD IH PRN (23:30)
[2017-03-21] MEDS: Albuterol-Ipratrop 3 mg / 0.5 (3 ml) UD IH SCH ×4 (02:00→20:13)
[2017-03-21] MEDS: Piperacillin/Tazobact 3.375 gm 100 ML IVPB SCH ×4 (05:42→21:02)
[2017-03-21] MEDS: Budesonide 0.5 mg/2 ml Inhal Susp UD IH SCH ×2 (07:22→20:13)
--- NOTE | 2017-03-21 07:51 | CP.PCM.PN ---
Subjective - Date & Time of Evaluation Date of Evaluation: 03/21/17 Time of Evaluation: 07:47 - Subjective Subjective: Patient seen and examined this morning. Patient still notes mild shortness of breath and chest tightness. Left shoulder pain and RUE parasthesias are improved. Patient denies headache, weakness, visual deficits. Diarrhea is improving. Objective - Vital Signs/Intake and Output Vital Signs (last 24 hours): Temp Pulse Resp BP Pulse Ox 98.6 F 82 17 140/88 95 03/20/17 19:35 03/20/17 19:35 03/20/17 19:35 03/20/17 19:35 03/20/17 19:35 Intake and Output: 03/21/17 03/21/17 06:59 18:59 Intake Total 600 Balance 600 - Medications Medications: Current Medications Acetaminophen (Tylenol 325mg Tab) 650 mg PO Q4 PRN PRN Reason: Fever >100.4 F Last Admin: 03/21/17 01:05 Dose: 650 mg Albuterol/Ipratropium (Duoneb 3 Mg/0.5 Mg (3 Ml) Ud) 3 ml IH [id number] [facility] Last Admin: 03/21/17 07:22 Dose: 3 ml Albuterol/Ipratropium (Duoneb 3 Mg/0.5 Mg (3 Ml) Ud) 3 ml IH Q2H PRN PRN Reason: Shortness of Breath Last Admin: 03/20/17 23:30 Dose: 3 ml Aspirin (Aspirin Chewable) 81 mg PO DAILY [facility] Last Admin: 03/20/17 10:31 Dose: 81 mg Atorvastatin Calcium (Lipitor) 20 mg PO DIN [facility] Last Admin: 03/20/17 17:35 Dose: 20 mg Budesonide (Pulmicort Respules) 0.5 mg IH [id number] [facility] Last Admin: 03/21/17 07:22 Dose: 0.5 mg Carvedilol (Coreg) 12.5 mg PO BID [facility] Clonidine HCl (Catapres) 0.3 mg PO BID [facility] Last Admin: 03/19/17 12:26 Dose: Not Given Doxycycline Hyclate (Doryx) 100 mg PO Q12 [facility] PRN Reason: Protocol Last Admin: 03/20/17 21:47 Dose: 100 mg Ergocalciferol (Drisdol 50,000 Intl Units Cap) 1 cap PO Q7D [facility] Last Admin: 03/19/17 11:31 Dose: 1 cap Famotidine (Pepcid) 40 mg PO HS [facility] Last Admin: 03/20/17 21:47 Dose: 40 mg Furosemide (Lasix) 20 mg PO DAILY [facility] Last Admin: 03/19/17 11:53 Dose: Not Given Gabapentin (Neurontin) 600 mg PO BID [facility] PRN Reason: Protocol Last Admin: 03/20/17 17:34 Dose: 600 mg Guaifenesin (Robitussin) 100 mg PO Q4H PRN PRN Reason: Cough Last Admin: 03/19/17 23:42 Dose: 100 mg Heparin Sodium (Porcine) (Heparin) 5,000 units SC Q12 [facility] PRN Reason: Protocol Last Admin: 03/20/17 21:47 Dose: 5,000 units Hydroxychloroquine Sulfate (Plaquenil) 200 mg PO BID [facility] Last Admin: 03/20/17 17:34 Dose: 200 mg Piperacillin Sod/Tazobactam Sod (Zosyn 3.375 In Ns 100ml) 100 mls @ 200 mls/hr IVPB 0900,1500,2100,0300 [facility] PRN Reason: Protocol Stop: 03/26/17 15:01 Last Admin: 03/21/17 05:42 Dose: Not Given Methylprednisolone (Solu-Medrol) 30 mg IVP Q12 [facility] Last Admin: 03/20/17 21:45 Dose: 30 mg Montelukast Sodium (Singulair) 10 mg PO DAILY [facility] Last Admin: 03/20/17 10:31 Dose: 10 mg Morphine Sulfate (Morphine) 2 mg IVP Q4H PRN PRN Reason: Pain, moderate (4-7) Lacosamide [Vimpat] (200 Mg) 200 mg PO BID [facility] Last Admin: 03/20/17 17:33 Dose: 200 mg Ondansetron HCl (Zofran Inj) 4 mg IVP Q4H PRN PRN Reason: Nausea/Vomiting Valsartan (Diovan) 320 mg PO DAILY [facility] Last Admin: 03/19/17 12:27 Dose: Not Given - Labs Labs: 03/20/17 06:30 03/20/17 06:30 PT 10.5 Seconds (9.9-11.8) 03/19/17 01:20 INR 0.97 (0.93-1.08) 03/19/17 01:20 APTT 24.3 Seconds (23.7-30.8) 03/19/17 01:20
[2017-03-21 07:55] LABS: HEMATOCRIT 36.3 % (36.0-48.0); MEAN CORPUSCULAR HEMOGLOBIN 26.9 pg (25.0-35.0); MEAN CORPUSCULAR HGB CONC 33.6 g/dl (31.0-37.0); MEAN PLATELET VOLUME 9.6 fl (7.0-11.0); RED CELL DISTRIBUTION WIDTH 15.3 % (11.5-14.5); WHITE BLOOD COUNT 17.4 10^3/ul (4.5-11.0)
[2017-03-21 08:08] LABS: ALB/GLOB RATIO 1.3 (1.1-1.8); ALKALINE PHOSPHATASE 138 U/L (38-133); ALT/SGPT 97 U/L (7-56); AST/SGOT 36 U/L (15-39); BILIRUBIN,TOTAL 0.5 mg/dL (0.2-1.3); BLOOD UREA NITROGEN 13 mg/dL (7-21); CARBON DIOXIDE 24 mmol/L (21-33); CHLORIDE 105 mmol/L (98-107); GFR AFRICAN-AMERICAN > 60; GLUCOSE,RANDOM 107 mg/dL (70-110); MAGNESIUM 1.9 mg/dL (1.7-2.2); PHOSPHOROUS 3.5 mg/dL (2.5-4.5); POTASSIUM 4.2 mmol/L (3.6-5.0); SODIUM 142 mmol/L (132-148); TOTAL PROTEIN 7.6 g/dL (5.8-8.3)
--- NOTE | 2017-03-21 08:44 | PN ---
DATE: 03/21/2017 PULMONARY NOTE SUBJECTIVE: The patient appears very comfortable this morning. She is not short of breath at rest. PHYSICAL EXAMINATION: VITAL SIGNS: Temperature is 98.6, pulse 82, respirations 17, blood pressure 140 /88. Oxygen saturation on room air is 95%. HEENT: Normocephalic, atraumatic. No JVD. CARDIOVASCULAR: Positive S1, S2. No S3. LUNGS: Less basilar crackles. Much less rhonchi. No wheezing. EXTREMITIES: No clubbing, cyanosis, or edema. Calves are nontender to palpation. GASTROINTESTINAL: Abdomen is soft, nontender, nondistended. Bowel sounds are positive. SKIN: No acute rash. NEUROLOGIC: Limited at the present time. IMPRESSION: 1. Acute bronchitis. 2. Sepsis syndrome. 3. Left lower lobe pneumonia. 4. Asthma. 5. Increased liver function enzymes. 6. Advanced multiple sclerosis. PLAN: The patient appears very comfortable this morning. She is not short of breath at rest. She states she is feeling much better overall. On physical exam, her bronchospasm continues to resolve. In addition, there is no significant alveolar arterial gradient. I will continue with the current nebulizer treatments and change to oral steroids this morning. The patient remains on antibiotic therapy - as per infectious disease. Her temperatures have now completely resolved. The leukocytosis is improving. Clinical status of the patient is certainly improved - compared to the initial presentation. The patient is advised to increase her activity as tolerated. I also discussed the issue with the night nurse. I will discuss the above with Dr. Ortiz. Nam Lezama MD cc: [id number] TT: 03/21/2017 08:43:45 Confirmation # [id number] Dictation # [id number] [id number]
[2017-03-21] MEDS: LACOSAMIDE 200 MG PO SCH ×2 (09:48→17:29)
[2017-03-21 10:14] VITALS: RESP 20
[2017-03-21] MEDS ORDERED: Promethazine DM 6.25 mg-15 mg/5 ml Syrup PO PRN (12:05)
--- NOTE | 2017-03-21 12:15 | CP.PCM.PN ---
<Carol Francisco - Last Filed: 03/21/17 12:15> Subjective - Date & Time of Evaluation Date of Evaluation: 03/21/17 Time of Evaluation: 07:00 - Subjective Subjective: Medicine progress note for Dr Ortiz and Dr Post. Patient with no acute events overnight. Patient states the cp has improved, patient admits to cough with occasional whitish sputum. Patient denies fever or chills. Patient states the diarrhea has resolved. Objective - Vital Signs/Intake and Output Vital Signs (last 24 hours): Temp Pulse Resp BP Pulse Ox 97.9 F 86 20 162/93 H 97 03/21/17 08:00 03/21/17 09:47 03/21/17 08:00 03/21/17 09:47 03/21/17 08:00 Intake and Output: 03/21/17 03/21/17 06:59 18:59 Intake Total 600 Balance 600 - Medications Medications: Current Medications Acetaminophen (Tylenol 325mg Tab) 650 mg PO Q4 PRN PRN Reason: Fever >100.4 F Last Admin: 03/21/17 01:05 Dose: 650 mg Albuterol/Ipratropium (Duoneb 3 Mg/0.5 Mg (3 Ml) Ud) 3 ml IH [id number] [facility] Last Admin: 03/21/17 07:22 Dose: 3 ml Albuterol/Ipratropium (Duoneb 3 Mg/0.5 Mg (3 Ml) Ud) 3 ml IH Q2H PRN PRN Reason: Shortness of Breath Last Admin: 03/20/17 23:30 Dose: 3 ml Aspirin (Aspirin Chewable) 81 mg PO DAILY [facility] Last Admin: 03/21/17 09:44 Dose: 81 mg Atorvastatin Calcium (Lipitor) 20 mg PO DIN [facility] Last Admin: 03/20/17 17:35 Dose: 20 mg Benzonatate (Tessalon Perles) 100 mg PO TID [facility] Budesonide (Pulmicort Respules) 0.5 mg IH [id number] [facility] Last Admin: 03/21/17 07:22 Dose: 0.5 mg Carvedilol (Coreg) 12.5 mg PO BID [facility] Last Admin: 03/21/17 09:47 Dose: 12.5 mg Clonidine HCl (Catapres) 0.3 mg PO BID [facility] Last Admin: 03/21/17 09:46 Dose: 0.3 mg Doxycycline Hyclate (Doryx) 100 mg PO Q12 [facility] PRN Reason: Protocol Last Admin: 03/21/17 09:48 Dose: 100 mg Ergocalciferol (Drisdol 50,000 Intl Units Cap) 1 cap PO Q7D [facility] Last Admin: 03/19/17 11:31 Dose: 1 cap Famotidine (Pepcid) 40 mg PO HS [facility] Last Admin: 03/20/17 21:47 Dose: 40 mg Furosemide (Lasix) 20 mg PO DAILY [facility] Last Admin: 03/19/17 11:53 Dose: Not Given Gabapentin (Neurontin) 600 mg PO BID [facility] PRN Reason: Protocol Last Admin: 03/21/17 09:49 Dose: 600 mg Guaifenesin (Robitussin) 100 mg PO Q4H PRN PRN Reason: Cough Last Admin: 03/19/17 23:42 Dose: 100 mg Heparin Sodium (Porcine) (Heparin) 5,000 units SC Q12 [facility] PRN Reason: Protocol Last Admin: 03/21/17 09:48 Dose: 5,000 units Hydroxychloroquine Sulfate (Plaquenil) 200 mg PO BID [facility] Last Admin: 03/21/17 09:50 Dose: 200 mg Piperacillin Sod/Tazobactam Sod (Zosyn 3.375 In Ns 100ml) 100 mls @ 200 mls/hr IVPB 0900,1500,2100,0300 [facility] PRN Reason: Protocol Stop: 03/26/17 15:01 Last Admin: 03/21/17 09:42 Dose: 200 mls/hr Montelukast Sodium (Singulair) 10 mg PO DAILY [facility] Last Admin: 03/21/17 09:50 Dose: 10 mg Morphine Sulfate (Morphine) 2 mg IVP Q4H PRN PRN Reason: Pain, moderate (4-7) Lacosamide [Vimpat] (200 Mg) 200 mg PO BID [facility] Last Admin: 03/21/17 09:48 Dose: 200 mg Ondansetron HCl (Zofran Inj) 4 mg IVP Q4H PRN PRN Reason: Nausea/Vomiting Prednisone (Prednisone Tab) 30 mg PO DAILY [facility] Last Admin: 03/21/17 09:50 Dose: 30 mg Promethazine HCl/Dextromethorphan (Phenergan Dm Syrup) 5 ml PO Q6H PRN PRN Reason: Cough Valsartan (Diovan) 320 mg PO DAILY [facility] Last Admin: 03/19/17 12:27 Dose: Not Given - Labs Labs: 03/21/17 07:00 03/21/17 07:00 PT 10.5 Seconds (9.9-11.8) 03/19/17 01:20 INR 0.97 (0.93-1.08) 03/19/17 01:20 APTT 24.3 Seconds (23.7-30.8) 03/19/17 01:20 - Constitutional Appears: No Acute Distress - Head Exam Head Exam: ATRAUMATIC, NORMAL INSPECTION, NORMOCEPHALIC - Eye Exam Eye Exam: EOMI, Normal appearance, PERRL. absent: Scleral icterus - ENT Exam ENT Exam: Mucous Membranes Moist - Neck Exam Neck Exam: Normal Inspection - Respiratory Exam Respiratory Exam: Rhonchi (LLL). absent: Rales, Wheezes, Respiratory Distress, Stridor, NORMAL BREATHING PATTERN - Cardiovascular Exam Cardiovascular Exam: REGULAR RHYTHM, RRR, +S1, +S2. absent: Bradycardia, Tachycardia, Murmur - GI/Abdominal Exam GI & Abdominal Exam: Soft, Normal Bowel Sounds. absent: Distended, Firm, Guarding, Rigid, Tenderness - Extremities Exam Extremities Exam: Normal Inspection. absent: Pedal Edema - Back Exam Back Exam: NORMAL INSPECTION - Neurological Exam Neurological Exam: Alert, Awake, Oriented x3 - Psychiatric Exam Psychiatric exam: Normal Affect, Normal Mood - Skin Skin Exam: Dry, Intact, Normal Color, Warm Assessment and Plan - Assessment and Plan (Free Text) Assessment: Patient is a 57 y/o F with PMH of htn, MS, and asthma admitted with left lower lobe pneumonia. Plan: 1) Sepsis with pneumonia as the possible source- - patient continue to improve. - multiple service are following - Transaminits continue to trend down. - Continue on Zoxyn and doxy as per ID 2) HAP of the lingular lobe. - on abx - pulm following - now on po prednisone. - on bronchodilators. - robitussin, tessalon pearls and promethazine for cough and congestion. 3) Transaminitis - AST/ALT are trending down - hep panel normal - Although can be hydroxychloroquine adverse reaction 4) Normocytic anemia- resolved. 5) Diarrhea- resolved, cdiff negative. 6) Asthma - continue duoneb, pulmocort, singulair, 7) MS- currently not on therapy - neurology following 8) htn - will resume hypertensive meds. 9) HLD - Will continue lipitor 10) Arthritis and Neuropathy - will continue gabapentin and plaquenil 11) h/o seizure disorders - will continue vimpat 12) DVT and gi prophylaxis: pepcid and heparin sc. Patient seen, examined, case discussed with Dr Post. <Shane Post - Last Filed: 04/08/17 18:57> Objective - Vital Signs/Intake and Output Vital Signs (last 24 hours): Temp Pulse Resp BP Pulse Ox 98.3 F 73 20 122/74 96 03/22/17 16:00 03/22/17 16:00 03/22/17 16:00 03/22/17 16:00 03/22/17 16:00 - Labs Labs: 03/22/17 07:00 03/22/17 07:00 PT 10.5 Seconds (9.9-11.8) 03/19/17 01:20 INR 0.97 (0.93-1.08) 03/19/17 01:20 APTT 24.3 Seconds (23.7-30.8) 03/19/17 01:20 Attending/Attestation - Attestation I have personally seen and examined this patient.: Yes I have fully participated in the care of the patient.: Yes I have reviewed all pertinent clinical information, including history, physical exam and plan: Yes Notes (Text): 04/08/17 18:57 Medical record note made by the resident after discussion with my direction and input after the patient was personally seen and examined by me. I have reviewed the chart and agree that the record accurately reflects by personal performance of the history, physical exam, data review, and medical decision-making, in the course for the patient. I have also personally directed the plan of care.
--- NOTE | 2017-03-21 23:53 | CP.PCM.PN ---
Subjective - Date & Time of Evaluation Date of Evaluation: 03/21/17 Time of Evaluation: 09:45 - Subjective Subjective: Feeling better, no more chest pain, afebrile. Objective - Vital Signs/Intake and Output Vital Signs (last 24 hours): Temp Pulse Resp BP Pulse Ox 97.8 F 71 20 149/99 H 98 03/21/17 16:00 03/21/17 17:29 03/21/17 16:00 03/21/17 17:29 03/21/17 16:00 Intake and Output: 03/21/17 03/22/17 18:59 06:59 Intake Total 960 Balance 960 - Medications Medications: Current Medications Acetaminophen (Tylenol 325mg Tab) 650 mg PO Q4 PRN PRN Reason: Fever >100.4 F Last Admin: 03/21/17 01:05 Dose: 650 mg Albuterol/Ipratropium (Duoneb 3 Mg/0.5 Mg (3 Ml) Ud) 3 ml IH [id number] [facility] Last Admin: 03/21/17 20:13 Dose: 3 ml Albuterol/Ipratropium (Duoneb 3 Mg/0.5 Mg (3 Ml) Ud) 3 ml IH Q2H PRN PRN Reason: Shortness of Breath Last Admin: 03/20/17 23:30 Dose: 3 ml Aspirin (Aspirin Chewable) 81 mg PO DAILY [facility] Last Admin: 03/21/17 09:44 Dose: 81 mg Atorvastatin Calcium (Lipitor) 20 mg PO DIN [facility] Last Admin: 03/21/17 17:28 Dose: 20 mg Benzonatate (Tessalon Perles) 100 mg PO TID [facility] Last Admin: 03/21/17 17:29 Dose: 100 mg Budesonide (Pulmicort Respules) 0.5 mg IH [id number] [facility] Last Admin: 03/21/17 20:13 Dose: 0.5 mg Carvedilol (Coreg) 12.5 mg PO BID [facility] Last Admin: 03/21/17 17:29 Dose: 12.5 mg Clonidine HCl (Catapres) 0.3 mg PO BID [facility] Last Admin: 03/21/17 17:28 Dose: 0.3 mg Doxycycline Hyclate (Doryx) 100 mg PO Q12 [facility] PRN Reason: Protocol Last Admin: 03/21/17 21:02 Dose: 100 mg Ergocalciferol (Drisdol 50,000 Intl Units Cap) 1 cap PO Q7D [facility] Last Admin: 03/19/17 11:31 Dose: 1 cap Famotidine (Pepcid) 40 mg PO HS [facility] Last Admin: 03/21/17 21:02 Dose: 40 mg Furosemide (Lasix) 20 mg PO DAILY [facility] Last Admin: 03/19/17 11:53 Dose: Not Given Gabapentin (Neurontin) 600 mg PO BID [facility] PRN Reason: Protocol Last Admin: 03/21/17 17:29 Dose: 600 mg Guaifenesin (Robitussin) 100 mg PO Q4H PRN PRN Reason: Cough Last Admin: 03/19/17 23:42 Dose: 100 mg Heparin Sodium (Porcine) (Heparin) 5,000 units SC Q12 [facility] PRN Reason: Protocol Last Admin: 03/21/17 21:02 Dose: 5,000 units Hydroxychloroquine Sulfate (Plaquenil) 200 mg PO BID [facility] Last Admin: 03/21/17 17:30 Dose: 200 mg Piperacillin Sod/Tazobactam Sod (Zosyn 3.375 In Ns 100ml) 100 mls @ 200 mls/hr IVPB 0900,1500,2100,0300 [facility] PRN Reason: Protocol Stop: 03/26/17 15:01 Last Admin: 03/21/17 21:02 Dose: 200 mls/hr Montelukast Sodium (Singulair) 10 mg PO DAILY [facility] Last Admin: 03/21/17 09:50 Dose: 10 mg Lacosamide [Vimpat] (200 Mg) 200 mg PO BID [facility] Last Admin: 03/21/17 17:29 Dose: 200 mg Ondansetron HCl (Zofran Inj) 4 mg IVP Q4H PRN PRN Reason: Nausea/Vomiting Prednisone (Prednisone Tab) 30 mg PO DAILY [facility] Last Admin: 03/21/17 09:50 Dose: 30 mg Promethazine HCl/Dextromethorphan (Phenergan Dm Syrup) 5 ml PO Q6H PRN PRN Reason: Cough Valsartan (Diovan) 320 mg PO DAILY [facility] Last Admin: 03/19/17 12:27 Dose: Not Given - Labs Labs: 03/21/17 07:00 03/21/17 07:00 PT 10.5 Seconds (9.9-11.8) 03/19/17 01:20 INR 0.97 (0.93-1.08) 03/19/17 01:20 APTT 24.3 Seconds (23.7-30.8) 03/19/17 01:20 - Constitutional Appears: Non-toxic, No Acute Distress - Head Exam Head Exam: NORMAL INSPECTION - ENT Exam ENT Exam: Mucous Membranes Moist - Neck Exam Neck Exam: absent: Lymphadenopathy, Meningismus - Respiratory Exam Respiratory Exam: Decreased Breath Sounds - Cardiovascular Exam Cardiovascular Exam: +S1, +S2 - GI/Abdominal Exam GI & Abdominal Exam: Soft. absent: Tenderness Assessment and Plan - Assessment and Plan (Free Text) Plan: Assessment consider sepsis secondary to left lower lobe pneumonia in a patient presenting with chest pain - since he has been exposed to Levaquin 2 weeks ago, will treat this as healthcare-associated pneumonia; clinically improving HTN multiple sclerosis dyslipidemia asthma Plan continue Zosyn and Doxycycline pending final blood, sputum cx, urine Legionella Ag; today is day 3, will target 4-7 days of therapy Will continue to monitor clinically
--- NOTE | 2017-03-22 16:04 | PN ---
DATE: 03/22/2017 LOCATION: 573, bed 3 The patient was seen earlier this morning. SUBJECTIVE: The patient is resting comfortably in bed, not in distress, afebrile, much improved, mil[address] st pain currently not present, and breathing much better. OBJECTIVE: VITAL SIGNS: The patient is afebrile, heart rate is 68, respiratory rate is 18. HEAD AND NECK: Normocephalic, atraumatic. No meningismus present. No cervical adenopathy. HEART: S1 and S2 are normal. LUNGS: Decreased breath sounds bilaterally with crackles noted at the right base. ABDOMEN: Soft, nontender, nondistended. LABORATORY DATA: Unfortunately, we are unable to review the labs of the patient today because the [employer] systems are down. ASSESSMENT: We have a 57-year-old female coming in with chest pain, actually presenting with sepsis due to lower lobe healthcare-associated pneumonia. PLAN: Currently on doxycycline and Zosyn day #4; to complete 4-7 days of therapy. When the patient is ready for discharge, the patient could be switched to oral Augmentin and doxycycline to complete t he 7-day course of therapy. The patient, once discharged, should also follow up with her primary car e doctor for resolution of the pneumonia. Vitaliy Matthews M.D. cc: [id number] TT: 03/22/2017 16:03:27 Confirmation # [id number] Dictation # [id number]
[2017-03-22] MEDS: Budesonide 0.5 mg/2 ml Inhal Susp UD IH SCH (20:35)
[2017-03-22] MEDS: Albuterol-Ipratrop 3 mg / 0.5 (3 ml) UD IH SCH (20:35)
--- NOTE | 2017-03-22 21:02 | CP.PCM.DIS ---
<Carol Francisco - Last Filed: 03/23/17 07:51> Provider - Provider Date of Admission: 03/19/17 03:22 Attending physician: Jeff Ortiz MD Primary care physician: Dr Ortiz Consults: Pulm- Dr Lezama ID: Dr Matthews Cardio: Dr Sherman Neuro: Dr Moore Time Spent in preparation of Discharge (in minutes): 50 Diagnosis - Discharge Diagnosis (1) HAP (hospital-acquired pneumonia) Status: Acute (2) Sepsis Status: Acute (3) Asthma Status: Chronic (4) HTN (hypertension) Status: Chronic (5) Multiple sclerosis Status: Chronic (6) Rheumatoid arthritis Status: Chronic (7) Seizure disorder Status: Chronic (8) Neuropathy Status: Chronic Hospital Course - Lab Results Lab Results: Micro Results 03/19/17 11:40 Blood-Venous Blood Culture - Preliminary NO GROWTH AFTER 3 DAYS 03/20/17 06:30 Stool C. difficile Antigen & Toxin A,B (M - Final 03/19/17 12:03 Urine,Random Urine Culture - Final No Growth (<1,000 CFU/ML) Most Recent Lab Values WBC 17.4 10^3/ul (4.5-11.0) H 03/21/17 07:00 RBC 4.54 10^6/uL (3.5-6.1) 03/21/17 07:00 Hgb 12.2 gm/dL (12.0-16.0) 03/21/17 07:00 Hct 36.3 % (36.0-48.0) 03/21/17 07:00 MCV 80.0 fL (80.0-105.0) 03/21/17 07:00 MCH 26.9 pg (25.0-35.0) 03/21/17 07:00 MCHC 33.6 g/dl (31.0-37.0) 03/21/17 07:00 RDW 15.3 % (11.5-14.5) H 03/21/17 07:00 Plt Count 328 10^3/uL (120.0-450.0) 03/21/17 07:00 MPV 9.6 fl (7.0-11.0) 03/21/17 07:00 Gran % 81.2 % (50.0-68.0) H 03/19/17 06:40 Lymph % (Auto) 7.5 % (22.0-35.0) L 03/19/17 06:40 [place] % (Auto) 10.7 % (1.0-6.0) H 03/19/17 06:40 Eos % (Auto) 0.4 % (1.5-5.0) L 03/19/17 06:40 Baso % (Auto) 0.2 % (0.0-3.0) 03/19/17 06:40 Gran # 21.05 (1.4-6.5) H 03/19/17 06:40 Lymph # 1.9 (1.2-3.4) 03/19/17 06:40 [place] # 2.8 (0.1-0.6) H 03/19/17 06:40 Eos # 0.1 (0.0-0.7) 03/19/17 06:40 Baso # 0.05 K/mm3 (0.0-2.0) 03/19/17 06:40 PT 10.5 Seconds (9.9-11.8) 03/19/17 01:20 INR 0.97 (0.93-1.08) 03/19/17 01:20 APTT 24.3 Seconds (23.7-30.8) 03/19/17 01:20 pO2 29 mm/Hg (30-55) L 03/19/17 01:20 VBG pH 7.36 (7.32-7.43) 03/19/17 01:20 VBG pCO2 49.0 (40-60) 03/19/17 01:20 VBG HCO3 27.7 mmol/l (21-28) 03/19/17 01:20 VBG Total CO2 29.2 mmol.L (22-28) H 03/19/17 01:20 VBG O2 Sat (Calc) 59.3 % (40-65) 03/19/17 01:20 VBG Base Excess 1.5 mmol/L (0.0-2.0) 03/19/17 01:20 VBG Potassium 4.1 mmol/L (3.6-5.2) 03/19/17 01:20 Sodium 138.0 mmol/L (132-148) 03/19/17 01:20 Chloride 107.0 mmol/L (98-107) 03/19/17 01:20 Glucose 94 mg/dl (65-105) 03/19/17 01:20 Lactate 1.8 mmol/L (0.7-2.1) 03/19/17 01:20 FiO2 21.0 % 03/19/17 01:20 Sodium 142 mmol/L (132-148) 03/21/17 07:00 Potassium 4.2 mmol/L (3.6-5.0) 03/21/17 07:00 Chloride 105 mmol/L (98-107) 03/21/17 07:00 Carbon Dioxide 24 mmol/L (21-33) 03/21/17 07:00 Anion Gap 17 (10-20) 03/21/17 07:00 BUN 13 mg/dL (7-21) 03/21/17 07:00 Creatinine 0.7 mg/dL (0.5-1.4) 03/21/17 07:00 Est GFR ( Amer) > 60 03/21/17 07:00 Est GFR (Non-Af Amer) > 60 03/21/17 07:00 Random Glucose 107 mg/dL (70-110) 03/21/17 07:00 Lactic Acid 1.9 mmol/L (0.7-2.1) 03/19/17 07:10 Calcium 11.0 mg/dL (8.4-10.5) H 03/21/17 07:00 Phosphorus 3.5 mg/dL (2.5-4.5) 03/21/17 07:00 Magnesium 1.9 mg/dL (1.7-2.2) 03/21/17 07:00 Total Bilirubin 0.5 mg/dL (0.2-1.3) 03/21/17 07:00 AST 36 U/L (15-39) 03/21/17 07:00 ALT 97 U/L (7-56) H 03/21/17 07:00 Alkaline Phosphatase 138 U/L (38-133) H 03/21/17 07:00 Troponin I < 0.01 ng/mL 03/19/17 17:11 Total Protein 7.6 g/dL (5.8-8.3) 03/21/17 07:00 Albumin 4.3 g/dL (3.0-4.8) 03/21/17 07:00 Globulin 3.3 gm/dL 03/21/17 07:00 Albumin/Globulin Ratio 1.3 (1.1-1.8) 03/21/17 07:00 Procalcitonin < 0.05 NG/ML (0.19-0.49) L 03/19/17 01:20 Venous Blood Potassium 4.1 mmol/L (3.6-5.2) 03/19/17 01:20 Urine Color Yellow (YELLOW) 03/19/17 22:10 Urine Appearance Clear (CLEAR) 03/19/17 22:10 Urine pH 6.0 (4.7-8.0) 03/19/17 22:10 Ur Specific [place] 1.025 (1.005-1.035) 03/19/17 22:10 Urine Protein Negative mg/dL (<30 mg/dL) 03/19/17 22:10 Urine Glucose (UA) Negative mg/dL (NEGATIVE) 03/19/17 22:10 Urine Ketones Negative mg/dL (NEGATIVE) 03/19/17 22:10 Urine Blood Trace-intact (NEGATIVE) H 03/19/17 22:10 Urine Nitrate Negative (NEGATIVE) 03/19/17 22:10 Urine Bilirubin Negative (NEGATIVE) 03/19/17 22:10 Urine Urobilinogen 0.2 E.U./dL (<1 E.U./dL) 03/19/17 22:10 Ur Leukocyte Esterase Trace Pal/uL (NEGATIVE) H 03/19/17 22:10 Urine RBC 0 - 2 /hpf (0-2) 03/19/17 22:10 Urine WBC 0 - 2 /hpf (0-6) 03/19/17 22:10 Ur Epithelial Cells None /hpf (0-5) 03/19/17 22:10 Urine Bacteria Few (NEG) 03/19/17 22:10 Hyaline Casts 0 - 2 /hpf 03/19/17 22:10 Hepatitis A IgM Ab Negative (NEGATIVE) 03/20/17 09:30 Hep Bs Antigen Negative (NEGATIVE) 03/20/17 09:30 Hep B Core IgM Ab Negative (NEGATIVE) 03/20/17 09:30 Hepatitis C Antibody Negative (NEGATIVE) 03/20/17 09:30 Influenza Typ A,B (EIA) Negative for flu a/b (NEGATIVE) 03/19/17 06:30 Ur L.pneumophila Ag Negative (NEGATIVE) 03/19/17 22:10 - Hospital Course Hospital Course: Patient is a 57 y/o with PMH of MS, HTN, Asthma, and HLD whom initially presented with left sided chest and back pain, was suspected to have sepsis. On arrival, patient met Sirs criteria. Patient had chest x-ray which revealed pneumonia of the lingular lobe. Patient was well hydrated, and given antibiotics. Patient was also giving bronchodilators, and steroid for her underlying airway disease. Pulmonary and ID were following patient. Patient's private neurologist was also consulted, and MS flare was result out. Kend[place] cultures were all normal. Patient had very high leukocytosis which improved. Furthermore, patient's cardiac work up was normal, including normal ekg and cardiac enzymes. The chest pain was deemed to be secondary to pneumonia. 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 Patient to be discharged with 5 more days of Augmentin and doxy. Patient was also prescribed medrol dose pack. - Date & Time of H&P Date of H&P: 03/19/17 Time of H&P: 04:09 Discharge Exam - Head Exam Head Exam: NORMAL INSPECTION - Eye Exam Eye Exam: EOMI, Normal appearance, PERRL. absent: Scleral icterus - ENT Exam ENT Exam: Mucous Membranes Moist - Neck Exam Neck exam: Normal Inspection - Respiratory Exam Respiratory Exam: Clear to PA & Lateral, Rhonchi (LLL improving ), NORMAL BREATHING PATTERN. absent: Rales, Wheezes, Respiratory Distress, Stridor - Cardiovascular Exam Cardiovascular Exam: REGULAR RHYTHM, RRR, +S1, +S2. absent: Irregular Rhythm, Systolic Murmur - GI/Abdominal Exam GI & Abdominal Exam: Normal Bowel Sounds, Soft, Unremarkable. absent: Distended , Firm, Guarding, Rigid, Tenderness - Extremities Exam Extremities exam: normal inspection - Back Exam Back exam: NORMAL INSPECTION - Neurological Exam Neurological exam: Alert, Normal Gait, Oriented x3 - Psychiatric Exam Psychiatric exam: Normal Affect, Normal Mood - Skin Skin Exam: Dry, Intact, Normal Color Discharge Plan - Discharge Medications Prescriptions: Amoxicillin/Clavulanate [Augmentin 500 MG-125 MG] 1 tab PO Q12 #10 tab Doxycycline Hyclate 100 mg PO Q24H #5 cap Methylprednisolone [Medrol Dose Pack (21 tabs)] 4 mg PO DAILY #21 mg - Follow Up Plan Condition: GOOD Disposition: HOME/ ROUTINE Patient education suggested?: Yes Referrals: Jeff Ortiz MD [Staff Provider] - Juan Alberto Moore MD [Staff Provider] - <Jeff Ortiz - Last Filed: 04/11/17 13:54> Provider - Provider Date of Admission: 03/19/17 03:22 Attending physician: Jeff Ortiz MD Hospital Course - Lab Results Lab Results: Micro Results 03/19/17 11:40 Blood-Venous Blood Culture - Final NO GROWTH AFTER 5 DAYS 03/19/17 11:40 Blood-Venous Gram Stain - Final TEST NOT PERFORMED 03/20/17 06:30 Stool C. difficile Antigen & Toxin A,B (M - Final 03/19/17 12:03 Urine,Random Urine Culture - Final No Growth (<1,000 CFU/ML) Most Recent Lab Values WBC 11.4 10^3/ul (4.5-11.0) H D 03/22/17 07:00 RBC 4.23 10^6/uL (3.5-6.1) 03/22/17 07:00 Hgb 11.4 gm/dL (12.0-16.0) L 03/22/17 07:00 Hct 34.4 % (36.0-48.0) L 03/22/17 07:00 MCV 81.3 fL (80.0-105.0) 03/22/17 07:00 MCH 27.0 pg (25.0-35.0) 03/22/17 07:00 MCHC 33.1 g/dl (31.0-37.0) 03/22/17 07:00 RDW 15.2 % (11.5-14.5) H 03/22/17 07:00 Plt Count 310 10^3/uL (120.0-450.0) 03/22/17 07:00 MPV 9.5 fl (7.0-11.0) 03/22/17 07:00 Gran % 81.2 % (50.0-68.0) H 03/19/17 06:40 Lymph % (Auto) 7.5 % (22.0-35.0) L 03/19/17 06:40 [place] % (Auto) 10.7 % (1.0-6.0) H 03/19/17 06:40 Eos % (Auto) 0.4 % (1.5-5.0) L 03/19/17 06:40 Baso % (Auto) 0.2 % (0.0-3.0) 03/19/17 06:40 Gran # 21.05 (1.4-6.5) H 03/19/17 06:40 Lymph # 1.9 (1.2-3.4) 03/19/17 06:40 [place] # 2.8 (0.1-0.6) H 03/19/17 06:40 Eos # 0.1 (0.0-0.7) 03/19/17 06:40 Baso # 0.05 K/mm3 (0.0-2.0) 03/19/17 06:40 PT 10.5 Seconds (9.9-11.8) 03/19/17 01:20 INR 0.97 (0.93-1.08) 03/19/17 01:20 APTT 24.3 Seconds (23.7-30.8) 03/19/17 01:20 pO2 29 mm/Hg (30-55) L 03/19/17 01:20 VBG pH 7.36 (7.32-7.43) 03/19/17 01:20 VBG pCO2 49.0 (40-60) 03/19/17 01:20 VBG HCO3 27.7 mmol/l (21-28) 03/19/17 01:20 VBG Total CO2 29.2 mmol.L (22-28) H 03/19/17 01:20 VBG O2 Sat (Calc) 59.3 % (40-65) 03/19/17 01:20 VBG Base Excess 1.5 mmol/L (0.0-2.0) 03/19/17 01:20 VBG Potassium 4.1 mmol/L (3.6-5.2) 03/19/17 01:20 Sodium 138.0 mmol/L (132-148) 03/19/17 01:20 Chloride 107.0 mmol/L (98-107) 03/19/17 01:20 Glucose 94 mg/dl (65-105) 03/19/17 01:20 Lactate 1.8 mmol/L (0.7-2.1) 03/19/17 01:20 FiO2 21.0 % 03/19/17 01:20 Sodium 137 mmol/L (132-148) 03/22/17 07:00 Potassium 4.0 mmol/L (3.6-5.0) 03/22/17 07:00 Chloride 101 mmol/L (98-107) 03/22/17 07:00 Carbon Dioxide 27 mmol/L (21-33) 03/22/17 07:00 Anion Gap 13 (10-20) 03/22/17 07:00 BUN 19 mg/dL (7-21) 03/22/17 07:00 Creatinine 0.9 mg/dL (0.5-1.4) 03/22/17 07:00 Est GFR ( Amer) > 60 03/22/17 07:00 Est GFR (Non-Af Amer) > 60 03/22/17 07:00 Random Glucose 113 mg/dL (70-110) H 03/22/17 07:00 Lactic Acid 1.9 mmol/L (0.7-2.1) 03/19/17 07:10 Calcium 10.1 mg/dL (8.4-10.5) 03/22/17 07:00 Phosphorus 3.5 mg/dL (2.5-4.5) 03/21/17 07:00 Magnesium 1.9 mg/dL (1.7-2.2) 03/21/17 07:00 Total Bilirubin 0.6 mg/dL (0.2-1.3) 03/22/17 07:00 AST 24 U/L (15-39) 03/22/17 07:00 ALT 75 U/L (7-56) H 03/22/17 07:00 Alkaline Phosphatase 120 U/L (38-133) 03/22/17 07:00 Troponin I < 0.01 ng/mL 03/19/17 17:11 Total Protein 6.7 g/dL (5.8-8.3) 03/22/17 07:00 Albumin 3.7 g/dL (3.0-4.8) 03/22/17 07:00 Globulin 3.0 gm/dL 03/22/17 07:00 Albumin/Globulin Ratio 1.2 (1.1-1.8) 03/22/17 07:00 Procalcitonin < 0.05 NG/ML (0.19-0.49) L 03/19/17 01:20 Venous Blood Potassium 4.1 mmol/L (3.6-5.2) 03/19/17 01:20 Urine Color Yellow (YELLOW) 03/19/17 22:10 Urine Appearance Clear (CLEAR) 03/19/17 22:10 Urine pH 6.0 (4.7-8.0) 03/19/17 22:10 Ur Specific [place] 1.025 (1.005-1.035) 03/19/17 22:10 Urine Protein Negative mg/dL (<30 mg/dL) 03/19/17 22:10 Urine Glucose (UA) Negative mg/dL (NEGATIVE) 03/19/17 22:10 Urine Ketones Negative mg/dL (NEGATIVE) 03/19/17 22:10 Urine Blood Trace-intact (NEGATIVE) H 03/19/17 22:10 Urine Nitrate Negative (NEGATIVE) 03/19/17 22:10 Urine Bilirubin Negative (NEGATIVE) 03/19/17 22:10 Urine Urobilinogen 0.2 E.U./dL (<1 E.U./dL) 03/19/17 22:10 Ur Leukocyte Esterase Trace Pal/uL (NEGATIVE) H 03/19/17 22:10 Urine RBC 0 - 2 /hpf (0-2) 03/19/17 22:10 Urine WBC 0 - 2 /hpf (0-6) 03/19/17 22:10 Ur Epithelial Cells None /hpf (0-5) 03/19/17 22:10 Urine Bacteria Few (NEG) 03/19/17 22:10 Hyaline Casts 0 - 2 /hpf 03/19/17 22:10 Hepatitis A IgM Ab Negative (NEGATIVE) 03/20/17 09:30 Hep Bs Antigen Negative (NEGATIVE) 03/20/17 09:30 Hep B Core IgM Ab Negative (NEGATIVE) 03/20/17 09:30 Hepatitis C Antibody Negative (NEGATIVE) 03/20/17 09:30 Influenza Typ A,B (EIA) Negative for flu a/b (NEGATIVE) 03/19/17 06:30 Ur L.pneumophila Ag Negative (NEGATIVE) 03/19/17 22:10 Attending/Attestation - Attestation I have personally seen and examined this patient.: Yes I have fully participated in the care of the patient.: Yes I have reviewed all pertinent clinical information, including history, physical exam and plan: Yes Notes (Text): 04/11/17 13:54 Resident note done after seen and examined by me with discussion. The note is a representation of my history, physical and plan for patient.
[2017-03-22 22:49] VITALS: BP 122/74; PULSE 73; TEMP 98.3; O2SAT 96
[2017-03-23 12:45] LABS: HEMATOCRIT 34.4 % (36.0-48.0); MEAN CELL VOLUME 81.3 fL (80.0-105.0); MEAN CORPUSCULAR HGB CONC 33.1 g/dl (31.0-37.0); MEAN PLATELET VOLUME 9.5 fl (7.0-11.0); RED CELL DISTRIBUTION WIDTH 15.2 % (11.5-14.5); WHITE BLOOD COUNT 11.4 10^3/ul (4.5-11.0)
[2017-03-23 16:52] LABS: ALB/GLOB RATIO 1.2 (1.1-1.8); ALKALINE PHOSPHATASE 120 U/L (38-133); ALT/SGPT 75 U/L (7-56); AST/SGOT 24 U/L (15-39); BILIRUBIN,TOTAL 0.6 mg/dL (0.2-1.3); BLOOD UREA NITROGEN 19 mg/dL (7-21); CALCIUM 10.1 mg/dL (8.4-10.5); CARBON DIOXIDE 27 mmol/L (21-33); CHLORIDE 101 mmol/L (98-107); GFR AFRICAN-AMERICAN > 60; GLUCOSE,RANDOM 113 mg/dL (70-110); SODIUM 137 mmol/L (132-148); TOTAL PROTEIN 6.7 g/dL (5.8-8.3)
== END 2017-03-22 18:27 | disposition home or self-care (01) | DRG 871 ==
LOC: ED 00:55 → ERH 03:22 → 2RSO 04:21 → 5RSO 03-20 16:25
PROVIDERS: ADMIT Internal Medicine; ATTEND Internal Medicine
DX: A41.9 Sepsis, unspecified organism (principal); J18.9 Pneumonia, unspecified organism; Y95 Nosocomial condition; J45.909 Unspecified asthma, uncomplicated; G35 Multiple sclerosis; I10 Essential (primary) hypertension; E78.00 Pure hypercholesterolemia, unspecified; E78.5 Hyperlipidemia, unspecified; G40.909 Epilepsy, unspecified, not intractable, without status epilepticus; G62.9 Polyneuropathy, unspecified; M06.9 Rheumatoid arthritis, unspecified; J20.9 Acute bronchitis, unspecified; Z79.899 Other long term (current) drug therapy; Z83.3 Family history of diabetes mellitus; R00.0 Tachycardia, unspecified; M19.90 Unspecified osteoarthritis, unspecified site; R07.9 Chest pain, unspecified; D64.9 Anemia, unspecified; R79.89 Other specified abnormal findings of blood chemistry